=== PATIENT | male | born 1945 | race Caucasian/White ===

== ENCOUNTER 2017-02-26 23:30 | Emergency (ER) | payer MEDICARE ==
[~2017-02-26] VITALS: Ht 188 cm; Wt 88.6 kg
[2017-02-26 23:39] VITALS: BP 151/91; PULSE 82; RESP 16; O2SAT 95
--- NOTE | 2017-02-27 00:28 | ED.REPORT ---
HPI-General Illness Date of Service Feb 27, 2017 ED Provider: Dr. Brice Pt is a 71 year old male who presents to the ED several hours post melanoma removal. He reports that his bandage fell off and he came in to get it replaced. He denies any pain or sense of infection. He reports that he is scheduled to visit wound care every 3 days for wound care, for he is partially paralyzed and it is difficult for him to do on his own. Pt temporarily replaced the bandage with a paper towel and painter structural steel's tape. He has no other complaints. Nursing Notes Stated Complaint: BANDAGES FOR STITCHES,JUST HAD SURGERY Chief Complaint: General Complaint Nursing Notes Reviewed: Yes Allergies: Uncoded Allergies: NSAIDS (Allergy, Severe, 09/19/12) General Time Seen by MD: 00:28 Chief Complaint Other (Dressing change) Hx Obtained From: Patient Arrived By: Walk-in Sudden in Onset?: Yes Onset Occurred: Just prior to arrival Symptom Duration: Since onset Severity: Current: No pain currently Severity: Maximum: No pain Similar Sx Previous: Yes Past Medical History Past Medical History Melenoma Past Surgical History Multiple melenoma removals Ambulatory Status Independent Review of Systems Full Review of Systems Constitutional: Denies: Chills, Fever, Malaise, Weakness - generalized Respiratory: Denies: Non-productive cough, Shortness of breath, Wheezing Cardiovascular: Denies: Chest pain, Syncope GI: Denies: Abdominal pain, Constipation, Diarrhea, Nausea, Vomiting Male: Denies Dysuria, Denies Urinary urgency Musculoskeletal: Denies: Back pain, Neck pain Complete sys rev & neg: except as marked. Physical Exam Vital Signs Vital Signs Date Time Temp Pulse Resp B/P Pulse Ox O2 Delivery O2 Flow Rate FiO2 02/26/17 23:39 36.8 82 16 151/91 95 Room Air Initial VS: Reviewed General/Constitutional: Well-developed Head / Eyes: Atraumatic, Normocephalic, PERRL ENT: Mucous membranes moist, Conjunctiva normal, No scleral icterus Neck: Supple, Non-tender, Full range of motion Neurologic: Alert, Oriented, Nonfocal Skin: No rash, Warm, Dry Rash / Lesion Notes: 5x7cm over left upper back with sutures in place. No active bleeding or surrounding erythema Re-Eval/Medical Decision Med Decision/Clinical Course 71-year-old male presenting status post left upper back melanoma removal this evening. He went home and his dressing fell off and he is requesting a new dressing. The wound appears quite good and there is no evidence of infection, bleeding, discharge. Dressing was replaced. Patient is discharged home with follow-up with his regular doctor. Source of Hx: Old records Time of Eval: 00:58 Re-Evaluation/Progress Note: Pt is rechecked and informed of the plan to discharge him at this time. He understands and agrees, all questions are addressed. Counseled Regarding: Diagnosis, Need for follow-up, When/why to return to ED Discharge & Departure Primary Impression: Dressing change Disposition: Home Discharge Condition All VS Reviewed: Yes Condition: Stable Patient Instructions: Acute Wound Care (ED) Additional Instructions: Thank you for seeking care in the emergency department today. Your dressing was successfully changed today. Your wound appears to be healing well. Keep the area clean and dry as instructed by your field spec. Follow up with wound care as planned. Referrals: Andrei Vidal MD (PCP) Edwin Attestation Portions of this note were transcribed by Dr. Burrell. I, Malika Estrella personally performed the history, physical exam and medical decision-making; I reviewed and confirmed the accuracy of the information in the transcribed note. Signed by: Edwin Harmon, 02/26 0115 copies to: Andrei Vidal MD, Ben M MD Feb 27, 2017 00:28 WALTER ESTRELLA Feb 27, 2017 01:00
== END 2017-02-27 01:30 | disposition home or self-care (01) ==
LOC: SED 23:30
DX: Z48.01 Encounter for change or removal of surgical wound dressing (principal); Z98.890 Other specified postprocedural states; J45.909 Unspecified asthma, uncomplicated; I10 Essential (primary) hypertension; Z88.6 Allergy status to analgesic agent
CPT/HCPCS: 11403; 12034; 17000; 88305; 88342; 99282; G0463

== ENCOUNTER 2017-07-21 06:26 | Emergency (ER) | payer MEDICARE, MEDICAID ==
[~2017-07-21] VITALS: Ht 185.4 cm; Wt 81.8 kg
--- NOTE | 2017-07-21 06:27 | ED.REPORT ---
HPI-Allergic Reaction Date of Service Jul 21, 2017 ED Provider: Dr. Chapa The pt is a 72 y/o male with a hx of COPD, HTN, asthma, and bee sting allergy who presents to the ED complaining of multiple bee stings, onset 40 minutes ago. The pt was stung on his left forearm, back and head. The pt was running away from the bees when he fell. He complains of right elbow pain, right shoulder pain and right sided lateral chest pain that exacerbates with movement. He denies throat tightness and fullness, shortness of breath, and facial swelling. Nursing Notes Stated Complaint: ALLERGIC REACTION Nursing Notes Reviewed: Yes Allergies: Uncoded Allergies: NSAIDS (Allergy, Severe, 09/19/12) BEE STINGS (Allergy, Unknown, 07/21/17) Scheduled PRN Oxycodone (Roxicodone) 5 Mg Tablet 2.5-5 MG PO QID PRN PRN For Pain General Time Seen by MD: 06:27 Chief Complaint Insect bite/sting Hx Obtained From: Patient Arrived By: Walk-in Onset Occurred: 16 - 30 minutes ago Symptom Duration: Since onset Location: : Arm right (elbow and shoulder): Chest (right sided lateral) Quality: Painful Severity: Current: Moderate Severity: Maximum: Moderate Recent Healthcare: No recent doctor visit Past Medical History Past Medical History Melenoma COPD HTN Asthma Past Surgical History Multiple melenoma removals Hernia surgery Smoking History Unknown if Ever Smoker Social History Alcohol Use: "Social" Drug Use: THC Ambulatory Status Independent Review of Systems Reports: bee stings on the left forearm, back and head Reports: right sided lateral chest pain Denies:throat tightness and fullness Denies: facial swelling Respiratory: Denies: Shortness of breath Complete sys rev & neg: except as marked. Musculoskeletal: Reports: Joint pain (right elbow, right shoulder) Physical Exam Initial Vital Signs Vital Signs (First) Date Time Temp Pulse Resp B/P Pulse Ox O2 Delivery O2 Flow Rate FiO2 07/21/17 06:29 36.7 106 16 180/93 96 Room Air Initial VS: Reviewed Neck: Supple, Non-tender, Full range of motion Abdomen / GI: Soft, Non-tender, No guarding, No rebound, No distention Extremities: Vascular intact, Neuro intact, No swelling, No tenderness Neurologic: Alert, Oriented, Nonfocal General/Constitutional: Awake, Alert, Cooperative Respiratory / Chest: Atraumatic, No respiratory distress, No rales, No rhonchi , No stridor Wheezing / Retractions: Positive: Wheezing expiratory (mild) Chest Wall / Ribs: Positive: Chest tender upper R Cardiovascular: Heart rate NL, Regular rhythm, Heart sounds NL, No gallop, No murmurs, No rubs Skin: Atraumatic, Warm, Dry, Intact Couple of scattered urticarial lesions on left forearma and on his left thoracic area. Head / Eyes: Atraumatic, Normocephalic, Eyelids NL No facial swelling. ENT: Atraumatic, Airway patent, Mucous membranes moist, Pharynx NL No oropharyngeal edema Interpretation & Diagnostics PROCEDURE: X-RAY RIGHT RIBS INCLUDING PA CHEST, MINIMUM THREE VIEWS ([id number]) IMPRESSION: Mildly displaced right third and fifth rib fractures. Dictated by: Maxim Cullen M.D. on 07/21/2017 at 8:01 Approved by: Maxim Cullen M.D. on 07/21/2017 at 8:03 Procedures Splint Application - Fx Mgt Time: 08:50 Procedure Performed by: Nurse Type of Immobilization: Sling Definitive Fracture Care: Pain control, Sling Post-Procedure / Complications: Cap refill normal, Post splint vascular nl, Post splint neuro nl, Condition improved, Tolerated procedure well, Patient stable Re-Eval/Medical Decision Med Decision/Clinical Course Localized allergic reaction from bee stings. No systemic signs after observation. Additionally patient has nondisplaced rib fractures after a fall sustained when running from bees. Oxycodone prescribed. Patient is already on steroid medication. Return and follow-up precautions given. Re-Evaluation/Progress #1: Time of Eval: 06:36 Re-Evaluation/Progress Note: Rechecked pt. Discussed the plan to do a chest X-ray. The pt understands and agrees. All questions answered. Re-Evaluation/Progress #2: Time of Eval: 08:35 Re-Evaluation/Progress Note: Rechecked pt. Discussed imaging results, diagnosis and plan to discharge. Pt understands and agrees with the plan. F/U instruction and RTER warning given. All questions addressed Counseled Regarding: Diagnosis, Need for follow-up, When/why to return to ED Discharge & Departure Primary Impression: Bee sting reaction Encounter type: initial encounter Injury intent: accidental or unintentional Qualified Code: T63.441A - Toxic effect of venom of bees, accidental (unintentional), initial encounter Additional Impression: Rib fracture Encounter type: initial encounter Rib fracture type: multiple ribs Fracture type: closed Laterality: right Qualified Code: S22.41XA - Multiple fractures of ribs, right side, initial encounter for closed fracture Disposition: Home Discharge Condition All VS Reviewed: Yes Condition: Stable Patient Instructions: Insect Bite or Sting (ED) Additional Instructions: You were stung by bees. You also fell after running away from the bees and broke 2 ribs on your right side. Take Benadryl as needed for recurrent itching. Use oxycodone and a shoulder sling to help with your shoulder and rib pain. Follow-up with your regular doctor and orthopedist as needed for worsening symptoms. Return to the ER if you develop symptoms of anaphylaxis such as throat closing, oral or facial swelling, difficulty breathing, or other concerns Referrals: Andrei Vidal MD (PCP) Scribe Attestation Portions of this note were transcribed by Rogerio Cedeño. I,, personally performed the history,physical exam and medical decision-making;I reviewed and confirmed the accuracy of the information in the transcribed note. Signed by Edwin Rodriguez. 07/21/17 copies to: Andrei Vidal MD, Timothy S DO Jul 21, 2017 06:27 Rogerio Cedeño Jul 21, 2017 06:36
[2017-07-21 06:29] VITALS: BP 180/93; PULSE 106; RESP 16; O2SAT 96
[2017-07-21] MEDS ORDERED: Famotidine 10 mg/mL 2 mL Inj IVPUSH ONE (06:35)
[2017-07-21] MEDS ORDERED: 0.9% Sodium Chloride 1,000 ML IV ONE (06:35)
[2017-07-21] MEDS ORDERED: MethylprednisoLONE Sodium Succinate 62.5 mg/mL 2 mL Inj IVPUSH ONE (06:35)
[2017-07-21] MEDS ORDERED: 0.9% Sodium Chloride 1,000 ML IV SCH (06:35)
[2017-07-21] MEDS ORDERED: Famotidine 20 mg/50 mL NS Premix IV ONE (07:16)
--- NOTE | 2017-07-21 08:04 | DRSVH ---
PROCEDURE: X-RAY RIGHT RIBS INCLUDEING PA CHEST, MINUMUM THREE VIEWS ([id number]) INDICATIONS: fall, rib pain TECHNIQUE: 4 views of the right ribs were acquired, along with a single view chest. COMPARISON: None. FINDINGS: Surgical changes and devices: None. Bones and chest wall: Mildly displaced right third and fifth rib fractures. No suspicious bony lesio ns. Overlying soft tissues appear unremarkable. Lungs and pleura: No pleural effusions or pneumothorax. Lungs appear clear. Mediastinum: Mediastinal contours appear normal. Heart size is normal. IMPRESSION: Mildly displaced right third and fifth rib fractures. Dictated by: Maxim Cullen M.D. on 07/21/2017 at 8:01 Approved by: Maxim Cullen M.D. on 07/21/2017 at 8:03
[2017-07-21] MEDS ORDERED: OXYC-474 PO (08:38)
[2017-07-21 08:56] VITALS: BP 159/72; PULSE 89; RESP 15; O2SAT 96
[2017-07-22] MEDS ORDERED: LISI30TA5 PO (23:15)
[2017-07-22] MEDS ORDERED: ADV250INH INHALATION (23:15)
[2017-07-22] MEDS ORDERED: PRE20 PO (23:15)
[2017-07-22] MEDS ORDERED: FLUO20CA25 PO (23:15)
[2017-07-22] MEDS ORDERED: MOME17SP NASAL (23:15)
[2017-07-22] MEDS ORDERED: TIZA4TAB4 PO (23:42)
[2017-07-22] MEDS ORDERED: CEPH500C PO (23:42)
[2017-07-22] MEDS ORDERED: TEST200V20 INJ (23:42)
[2017-07-22] MEDS ORDERED: OXYC5TAB72 PO (23:42)
== END 2017-07-21 09:00 | disposition home or self-care (01) ==
LOC: SED 06:26
DX: T63.441A Toxic effect of venom of bees, accidental (unintentional), initial encounter (principal); S22.41XA Multiple fractures of ribs, right side, initial encounter for closed fracture; W18.39XA Other fall on same level, initial encounter; Y93.02 Activity, running; Y92.9 Unspecified place or not applicable; Y99.8 Other external cause status; I10 Essential (primary) hypertension; Z88.6 Allergy status to analgesic agent
CPT/HCPCS: 71101; 96361; 96374; 96375; 99284; J1200; J2930; J7030

== ENCOUNTER 2017-07-22 16:49 | Inpatient (IN) | payer MEDICARE, MEDICAID ==
[~2017-07-22] VITALS: Ht 185.4 cm; Wt 79.2 kg
[2017-07-22] VITALS (8 sets, daily range): BP systolic 152–163; BP diastolic 89–96; PULSE 86–94; RESP 14–21; O2SAT 91–94
[~2017-07-22 16:49] MED LIST: OXYC-474 PO
--- NOTE | 2017-07-22 17:03 | ED.REPORT ---
HPI-General Illness Date of Service Jul 22, 2017 ED Provider: Ganesh Munoz MD Patient is a 72 year old male with a history of COPD, hypertension and asthma who presents to the ED via EMS complaining of increasing shortness of breath. Patient states that he has tried using 3 nebulizer treatments at home without relief. He is also on daily Prednisone. The patient was seen yesterday in the ED after he experienced a ground level fall running from bees. His rib X-ray from 07/21/17 showed mildly displaced right third and fifth rib fractures. He reports increasing work of breathing and difficulty breathing. He denies new cough or fevers. Nursing Notes Stated Complaint: SHORTNESS OF BREATH Chief Complaint: Respiratory Distress Nursing Notes Reviewed: Yes Allergies: Coded Allergies: NSAIDS (Non-Steroidal Anti-Inflamma (Verified Allergy, Severe, BREATHING STOPS, 07/22/17) aspirin (Verified Allergy, Severe, STOP BREATHING, 07/22/17) Uncoded Allergies: BEE STINGS (Allergy, Unknown, 07/21/17) Scheduled PRN Oxycodone (Roxicodone) 5 Mg Tablet 2.5-5 MG PO QID PRN PRN For Pain General Time Seen by MD: 16:59 Chief Complaint Other (shortness of breath) Hx Obtained From: Patient Arrived By: Ambulance Onset Occurred: 1 - 4 hours ago Symptom Duration: Since onset Location: : Chest Quality: Painful Severity: Current: Moderate Recent Healthcare: Recent doctor visit Past Medical History Past Medical History Melenoma Reports: Asthma, COPD, Hypertension Past Surgical History Multiple melenoma removals Hernia surgery Smoking History Unknown if Ever Smoker Social History Alcohol Use: "Social" Drug Use: THC Ambulatory Status Independent Review of Systems Full Review of Systems Constitutional: Denies: Chills, Fever Respiratory: Reports: Shortness of breath, Wheezing Cardiovascular: Reports: Chest pain (rib pain) Skin: Denies Itching, Denies Rash Neurologic: Denies: Numbness, Weakness Complete sys rev & neg: except as marked. Physical Exam Vital Signs Vital Signs Date Time Temp Pulse Resp B/P Pulse Ox O2 Delivery O2 Flow Rate FiO2 07/22/17 18:14 94 14 163/93 93 Nasal Cannula 07/22/17 18:03 94 20 93 Nasal Cannula 1 07/22/17 16:58 37.5 87 21 160/91 93 Room Air Initial VS: Reviewed General/Constitutional: Awake, Alert Head / Eyes: Atraumatic, Normocephalic, PERRL, EOMI Respiratory / Chest: No crepitus Wheezing / Retractions: Positive: Wheezing expiratory prolonged expiratory phase tender over the right superior lateral chest wall no palpable chest deformity Cardiovascular: Heart rate NL, Regular rhythm, Heart sounds NL, No gallop, No murmurs, No rubs Abdomen: Atraumatic, Soft, Non-tender, No distention Skin: Atraumatic, Color NL, No rash, Warm, Dry Neurologic: Oriented X3, Speech NL Interpretation & Diagnostics Lab Results Interpretation Result Diagram: 07/22/17 1719 07/22/17 1719 Test 07/22/17 17:19 White Blood Count 13.6th/mm3 (3.8-10.1) Red Blood Count 5.19mil/mm3 (4.40-5.80) Hemoglobin 16.5g/dL (13.8-17.2) Hematocrit 49.1% (41.0-50.0) Mean Corpuscular Volume 94.6fL (81-100) Mean Corpuscular Hemoglobin 31.8pg (27.0-35.0) Mean Corpuscular Hemoglobin Concent 33.6% (32.0-37.0) Red Cell Distribution Width 14.6% (12.3-15.4) Platelet Count 222bil/L (150-400) Neutrophils (%) (Auto) 75.4% (40-74) Lymphocytes (%) (Auto) 11.9% (14-46) Monocytes (%) (Auto) 9.8% (4-12) Eosinophils (%) (Auto) 0.4% (0-5) Basophils (%) (Auto) 0.2% (0-3) Prothrombin Time 9.8sec (8.1-12.5) Prothromb Time International Ratio 0.92ratio Sodium Level 142mEq/L (134-144) Potassium Level 3.9mEq/L (3.5-5.2) Chloride Level 103mEq/L (97-108) Carbon Dioxide Level 21mmol/L (18-29) Blood Urea Nitrogen 9mg/dL (8-27) Creatinine 0.73mg/dL (0.76-1.27) Estimat Glomerular Filtration Rate 113mL/min (>59) Glucose Level 126mg/dL (60-99) Calcium Level 9.3mg/dL (8.5-10.1) Magnesium Level 2.1mg/dL (1.6-2.6) Total Bilirubin 0.9mg/dL (0.0-1.2) Aspartate Amino Transf (AST/SGOT) 25U/L (0-50) Alanine Aminotransferase (ALT/SGPT) 26U/L (0-44) Alkaline Phosphatase 55U/L (25-160) Total Creatine Kinase 199U/L (21-232) Creatine Kinase MB 5.4ng/mL (0.0-10.4) Creatine Kinase MB % % (0.0-5.0) Troponin T 0.022ug/L (0.0-0.011) Pro-B-Type Natriuretic Peptide 1989pg/mL (0-376) Total Protein 7.0g/dL (6.4-8.4) Albumin 4.0g/dL (3.4-5.0) Procalcitonin 0.06ng/mL (0.00-0.08) ECG Interpretation ECG Interpretation: left axis deviation inferior Q waves anteroseptal Q waves no ST segment elevation no acute T wave abnormalities no prior EKG for comparison Time: 17:45 Interpreted by: ED physician Normal ECG Interpretation: Normal rate (84), Normal sinus rhythm X-Ray Chest Interpretation Chest Xray Interpretation: IMPRESSION: Focal right basilar airspace opacity suspicious for aspiration, atelectasis, or infection. Dictated by: Sarah Johnson M.D. on 07/22/2017 at 17:57 Approved by: Sarah Johnson M.D. on 07/22/2017 at 17:59 View: Portable, 1 view Interpretation / Wet Read by: Interpret - Radiologist Re-Eval/Medical Decision Med Decision/Clinical Course Patient is a 72 year old male with a history of COPD, hypertension and asthma who presents to the ED via EMS complaining of increasing shortness of breath. Patient states that he has tried using 3 nebulizer treatments at home without relief. He is also on daily Prednisone. The patient was seen yesterday in the ED after he experienced a ground level fall running from bees. His rib X-ray from 07/21/17 showed mildly displaced right third and fifth rib fractures. He reports increasing work of breathing and difficulty breathing. He denies new cough or fevers. Upon arrival in the emergency department the patient had significant respiratory distress requiring 4 L of supplemental oxygen by nasal cannula. He was otherwise hemodynamically stable and afebrile. The patient received the blow medications: 2 duo nebs, 125mg Methylprednisolone, Zithromax, ASA Laboratory studies were noted was below: Leukocytosis of 13.6, CBC otherwise unremarkable CMP unremarkable Trop elevated at 0.022 BNP: 1989 Coag studies normal EKG: sinus rhythm, 84bpm left axis deviation inferior Q waves anteroseptal Q waves no ST segment elevation no acute T wave abnormalities no prior EKG for comparison Chest X-ray: Focal right basilar airspace opacity suspicious for aspiration, atelectasis, or infection. At this time, the patient presents with significant respiratory distress in the setting of known acute traumatic rib fractures and significant underlying COPD. He clearly is experiencing COPD exacerbation and I suspect that his superimposed rib fractures are causing his current degree of respiratory distress. He was treated with [id number] DuoNeb as well as supplemental oxygen and IV methylprednisolone. He reported improvement in his breathing though had ongoing respiratory distress. Chest x-ray demonstrated what in my assessment appears to be atelectasis and I have opted to withhold antibiotics other than oral Azithromycin for the Moment. The patient was discussed with the admitting hospitalist and accepted for further management. The patient elevation of troponin remains of unclear etiology and will require trending of his troponins. EKG demonstrates no ST elevation and given his acute traumatic injury I opted not to aggressively heparinize him at the moment. We will trend his troponins and continue to observe him. He has been given aspirin. He was transferred in stable condition. Time of Eval: 18:24 Re-Evaluation/Progress Note: Discussed results and plan for admit. Patient understands and agrees to plan. All questions were addressed. Consultation : Referral / Consult Name: Neli Diaz MD Consulted With: Hospitalist Call Returned at: 18:30 Wedding Makeup Artist: Agrees with eval, Agrees with plan, Accepts admit Counseled Regarding: Diagnosis, Lab results, Need for admission Discharge & Departure Primary Impression: COPD exacerbation Additional Impressions: Hypoxia Elevated troponin Fall from ground level Multiple rib fractures Encounter type: initial encounter Fracture type: closed Laterality: right Qualified Code: S22.41XA - Multiple fractures of ribs, right side, initial encounter for closed fracture Respiratory distress Disposition: ADMITTED TO HOSPITAL Discharge Condition All VS Reviewed: Yes Condition: Stable Referrals: Andrei Vidal MD (PCP) Crit Care Except Billable Proc Time Spent: 105-134 minutes Services Performed: Patient management by me, Time spent at bedside, Reviewing test results, Reviewing imaging, Discussing patient care, Documentation in record Critical Care Notes: Reviewing previous workup, management of acute respiratory distress, management of elevated troponin, discussion with hospitalist and patient Scribe Attestation Portions of this note were transcribed by Ruby Iniguez. I, Dr. Munoz personally performed the history, physical exam and medical decision-making; I reviewed and confirmed the accuracy of the information in the transcribed note. Signed by: Edwin Dumont, 07/22/17 copies to: Andrei Vidal MD, Beck O MD Jul 22, 2017 17:03 Arti Iniguez Jul 22, 2017 17:29
[2017-07-22 17:22] LABS: BASOPHILS % (AUTO) 0.2 % (0-3); EOSINOPHILS % (AUTO) 0.4 % (0-5); MONOCYTES % (AUTO) 9.8 % (4-12); Mean Corpuscular Hemoglobin 31.8 pg (27.0-35.0); Mean Corpuscular Volume 94.6 fL (81-100); NEUTROPHILS % (AUTO) 75.4 % (40-74); Platelet Count 222 bil/L (150-400)
[2017-07-22] MEDS ORDERED: MethylprednisoLONE Sodium Succinate 62.5 mg/mL 2 mL Inj IVPUSH ONE (17:30)
[2017-07-22] MEDS ORDERED: Alum-Mag Hydrox-Simeth 30 mL Suspension PO PRN ×2 (17:30→19:05)
[2017-07-22] MEDS ORDERED: Albuterol-Ipratropium 3 mL Inhalation Solution NEB ONE (17:30)
[2017-07-22] MEDS ORDERED: Ondansetron 2 mg/mL 2 mL Inj IVPUSH PRN ×2 (17:30→19:05)
[2017-07-22 17:45] LABS: INR 0.92 ratio
[2017-07-22 17:46] LABS: TROPONIN T 0.022 ug/L (0.0-0.011)
[2017-07-22 17:57] LABS: Magnesium 2.1 mg/dL (1.6-2.6)
--- NOTE | 2017-07-22 18:01 | DRSVH ---
PROCEDURE: X-RAY CHEST, TWO VIEWS ([id number]) INDICATIONS: SHORT OF BREATH TECHNIQUE: 2 views of the chest were acquired. COMPARISON: [facility], CR, XR RIBS INC PA CXR MIN 3VW RT, 07/21/2017, 6:40. [facility], CR, CHEST 1VW (PORTABLE), 09/19/2012, 14:31. [facility], CR, XR CHEST 2VW, 10/08/2016, 10:17. FINDINGS: Surgical changes and devices: None. Lungs and pleura: Focal pulmonary opacities are present at the medial right lung base. No pleural eff usion or pneumothorax. Mediastinum: Mediastinal contours are normal. Heart size is normal. Bones and chest wall: Right rib fractures described on the rib series dated 07/21/17 are not visualize d on the current study. Soft tissues appear unremarkable. IMPRESSION: Focal right basilar airspace opacity suspicious for aspiration, atelectasis, or infection . Dictated by: Sarah Johnson M.D. on 07/22/2017 at 17:57 Approved by: Sarah Johnson M.D. on 07/22/2017 at 17:59
--- NOTE | 2017-07-22 19:18 | PCM.HPMED ---
Subjective Date of Service Jul 22, 2017 Primary Provider: Admitting Physician: Primary Care Physician: Andrei Vidal MD Attending Physician: Chief Complaint: Patient is a 72-year-old male with a medical history significant for hypertension and COPD presents with respiratory symptoms History of Present Illness: Per patient, he states significant shortness of breath with increasing wheezing since this morning. He desats to the low 80s with exertion. He can walk around 8-10 feet before stopping for air. Patient states that he cannot cough due to significant chest pain. Patient in the emergency room yesterday status post ground-level fall while he was running away from [place], resulting in right ribs fracture. Patient reports that he can usually clear his mucus every morning with vigorous coughing. However with ribs fracture, he cannot fully excoriate. Patient try inhalers that failed to ameliorate symptoms, thus present himself to ED. On review of system, patient denies any lightheadedness or dizziness. He further denies any cardiac chest pain, no syncopal episode, no palpitation. Patient has chronic cough, no change in sputum color or quantity, no hemoptysis. Additionally patient denies any fevers, chills, or night sweats. She denies any hematemesis, no nausea vomiting or diarrhea. In the ED, patient vital remained stable, blood pressure slightly high 163 and 96 otherwise no temperatures, pulses 80s, respiratory rate 18, pulse oximetry 91 -94% on 1-2 L. Chest x-ray redemonstrate right rib fracture, otherwise focal pulmonary opacity in the right mediastinal lung, possible pneumonia, aspiration or atelectasis. CBC with white count 13.6 elevated, however neutrophils 75.4%. Pro-calcitonin 0.06 unremarkable. Lab CMP unremarkable, kidney function GFR estimated at 113. Troponin mildly elevated at 0.022, CK and CK-MB within normal range however. And EKG without any ST or T-wave changes. Given the patient's elevated white count in addition to mild elevation in troponin, patient admitted for further evaluation Review of Systems: A comprehensive review of systems was conducted with the patient and found to be negative except as above in the History of Present Illness. 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 Primary hypogonadism History of nasal polyposis Depression COPD Surgical History Hernia repair surgery Multiple skin excision Family History Mother had lung cancer Family history of Alzheimer disease Social History Hx Alcohol Use: Yes (occassional) Hx Substance Use: No Hx Tobacco Use: No Smoking Status: Current Some Day Smoker (marijuana), Unknown if Ever Smoker Exam Vital Signs Vital Sign - Last Date Time Temp Pulse Resp B/P Pulse Ox O2 Delivery O2 Flow Rate FiO2 07/22/17 18:14 94 14 163/93 93 Nasal Cannula 07/22/17 18:03 1 07/22/17 16:58 37.5 Exam General: No acute distress, appropriately interactive HEENT: Normocephalic, atraumatic. PERRLA, EOMI, Anicteric sclerae, moist conjunctivae. Neck: No JVD, No bruits. No lymphadenopathy or thyromegaly. Cardiovascular: Regular heart rate and rhythm, there is a 2+ systolic heart murmur, no rub or gallop noted however Pulmonary: b/l air sound significant wheezing, tight, no crackles or rhonchi Abdomen: +Bowel sound, Soft, nontender, nondistended. Extremities: No clubbing or cyanosis, no lymphedema, no b/l lower leg edema Skin: Normal temperature, turgor, and texture; no rash. No visualized skin ulcer. Neurological: CN II-VII grossly intact, moving equally on all 4 extremities Psychiatric: Normal mood and affect. AOx3 Lab and Diagnostics Result Diagram: 07/22/17171807/22/171718 X-Rays, CTs and MRIs PROCEDURE: X-RAY CHEST, TWO VIEWS ([id number]) INDICATIONS: SHORT OF BREATH IMPRESSION: Focal right basilar airspace opacity suspicious for aspiration, atelectasis, or infection. Dictated by: Sarah Johnson M.D. on 07/22/2017 at 17:57 Assessment & Plan Patient is a 72-year-old male with medical history significant for COPD, asthma , and hypertension presents with significant shortness of breath, admitted for COPD exacerbation Multiple rib fractures -Mildly displaced right third and fifth rib fractures -oxycodone-apap 5-325mg Q4H prn COPD exacerbation -likely 2nd to rib pain, unable to clear phlegm -Solu-Medrol 125 mg every 6 hours -DuoNeb q4h while awake -Maintain O2 sat >93% Elevated troponin of uncertain significance -possible stress induced. kathrin score 3. -ASA 81mg given, ordered atorvastatin 20mg. -Troponin mildly elevated at 0.[address]-T changes, ck/ck-mb negative -Trending troponin, lipid panel, echo in the AM -telemetry monitoring Leukocytosis -CRx possible atelectasis. has right 3rd and 5th rib fracture -Likely steroid-induced -mild concerns for pneumonia given chronic prednisone 10mg BID -Procalcitonin ordered, received 1 dose azithromycin. low threshold to start abx. Essential Hypertension -restart home lisinopril -Lopressor 2.5-5mg IV should SBP consistently >180mmgh Depression -restart home fluoxetine Hyperglycemia -A1c pending CODE STATUS full code DVT prophylaxis heparin subq Patient Status: Patient is admitted under inpatient status with expected length of stay GREATER than 2 midnights due to severity of presenting symptoms, risk of adverse event, and complexity of treatment plan. Resuscitation Status: CPR: Attempt Resuscitation Attending Statement The patient was seen and examined together with Dr. Alicea on 07/22 and I agree with the history, exam and plan as outlined in the note above Jonny Alicea DO Jul 22, 2017 19:18 Norman Balbuena MD Jul 22, 2017 23:54
[2017-07-22] MEDS ORDERED: oxyCODONE-Acetamin 5-325 mg Tablet PO PRN (19:20)
[2017-07-22 20:07] LABS: Creatine Kinase 199 U/L (21-232)
[2017-07-22] MEDS ORDERED: MeTOProlol 1 mg/mL 5 mL Inj IVPUSH SCH (20:30)
[2017-07-22] MEDS: Albuterol-Ipratropium 3 mL Inhalation Solution NEB SCH (20:50)
[2017-07-22 21:46] LABS: APPEARANCE,URINE CLEAR (CLEAR,HAZY); COLOR,URINE YELLOW (YELLOW); OCCULT BLOOD,URINE NEGATIVE (NEGATIVE); PH,URINE 7.5 (5.0-8.0); UROBILINOGEN,URINE NORMAL (NORMAL)
--- NOTE | 2017-07-22 22:56 | NUR ---
Admit Pt arrived to [facility] floor at 1999 from ED for COPD exacerbation/hypoxia. Became short of breath with transfer to bed. Pt had a fall earlier in the week due to running away from bees and has fractured the 3rd and 5th rib on the right side -gave pillow to help splint when coughing. Pt c/o discomfort to the right side and discomfort to breath, but is refusing pain medications at this time. Has severe allergy to NSAIDS and aspirin and states "I would rather have just straight oxycodone and no tylenol). Is on 2-3L NC and receiving PRN neb treatments as well as Solu-Medrol and PO antibiotics at this time. Pt is on tele due to elevated troponin (without ST-T changes), BNP, and hypertension and has ordered to trend troponin levels, lipid panel, and echo for tomorrow.
[2017-07-22] MEDS ORDERED: FLUO20CA25 PO (23:15)
[2017-07-22] MEDS ORDERED: LISI30TA5 PO (23:15)
[2017-07-22] MEDS ORDERED: MOME17SP NASAL (23:15)
[2017-07-22] MEDS ORDERED: ADV250INH INHALATION (23:15)
[2017-07-22] MEDS ORDERED: PRE20 PO (23:15)
[2017-07-22] MEDS ORDERED: OXYC-530 PO (23:42)
[2017-07-22] MEDS ORDERED: TIZA4TAB4 PO (23:42)
[2017-07-22] MEDS ORDERED: CEPH500C PO (23:42)
[2017-07-22] MEDS ORDERED: TEST200V20 INJ (23:42)
[2017-07-23] VITALS (14 sets, daily range): BP systolic 153–178; BP diastolic 80–108; PULSE 77–114; RESP 16–20; O2SAT 90–95
[2017-07-23] MEDS ORDERED: MethylprednisoLONE Sodium Succinate 62.5 mg/mL 2 mL Inj IVPUSH SCH
[2017-07-23] MEDS: Albuterol-Ipratropium 3 mL Inhalation Solution NEB PRN ×3 (00:37→10:33)
[2017-07-23] MEDS: Heparin 5,000 Unit/mL Inj SUBQ SCH ×3 (01:01→18:16)
[2017-07-23] MEDS: MethylprednisoLONE Sodium Succinate 62.5 mg/mL 2 mL Inj IVPUSH SCH ×2 (02:34→08:36)
[2017-07-23 05:33] LABS: BASOPHILS % (AUTO) 0.1 % (0-3); EOSINOPHILS % (AUTO) 0 % (0-5); MONOCYTES % (AUTO) 4.1 % (4-12); Mean Corpuscular Hemoglobin 32.1 pg (27.0-35.0); Mean Corpuscular Volume 95.6 fL (81-100); NEUTROPHILS % (AUTO) 91.8 % (40-74); Platelet Count 185 bil/L (150-400)
[2017-07-23 06:11] LABS: TROPONIN T 0.01 ug/L (0.0-0.011)
[2017-07-23] MEDS: Albuterol-Ipratropium 3 mL Inhalation Solution NEB SCH ×4 (07:48→20:31)
--- NOTE | 2017-07-23 12:36 | PCM.PNMED ---
Subjective Date of Service Jul 23, 2017 Subjective Patient appears very agitated, speaking rapidly, appears to be having some conversational dyspnea. says he is missing his coffee. Does not appear to follow his doctors guidelines, he states that he likes to smoke marijuana because it something he did enjoy in his college days, he knows that he is going to go in a few years any ways. He is endorsing difficulty breathing, wheezing, pain in his ribs on the right side. He states that he wants to make sure it is not given aspirin, NSAIDs. He would like pain medication oxycodone to be changed 2.5 mg every 2 hours, he would like to receive a nebulizer treatment every 2 hours. He also wants to make sure that his antibiotic is still on onboard He has no other concerns. Exam Vital Signs Vital Sign - Last Date Time Temp Pulse Resp B/P Pulse Ox O2 Delivery O2 Flow Rate FiO2 07/23/17 08:43 Supplement Oxygen 07/23/17 08:16 36.8 94 16 166/103 93 1.00 Intake and Output 07/22/17 07/22/17 07/23/17 Cumulative From/Thru 15:00 23:00 07:00 07/22/17 16:58 - 07/23/17 06:50 Intake Total 0 ml 0 ml Output Total 1700 ml 1700 ml Balance -1700 ml -1700 ml Intake Oral 0 ml 0 ml Output Urine Total 1700 ml 1700 ml # Bowel Movements 0 0 Exam Gen.: Patient appears very anxious , mildly irritated HEENT: Ready complexion poor dentition lungs dissuely wheezy can not hear ehart sounds very agitated positive for conversational dyspnea skinny bosy habitus pain over T4, 3rd/4tyh rib on R side no edema in legs neck pain Lab and Diagnostics Result Diagram: 07/23/17 0500 07/23/17 0500 X-Rays, CTs and MRIs PROCEDURE: X-RAY CHEST, TWO VIEWS ([id number]) INDICATIONS: SHORT OF BREATH IMPRESSION: Focal right basilar airspace opacity suspicious for aspiration, atelectasis, or infection. Dictated by: Sarah Johnson M.D. on 07/22/2017 at 17:57 Assessment & Plan Patient is a 72-year-old male with medical history significant for COPD, asthma , and hypertension presents with significant shortness of breath, admitted for COPD exacerbation COPD acute on chronic exacerbation, POA -likely 2nd to rib pain, unable to clear phlegm -Solu-Medrol 40 mg every 12 hours -DuoNeb q4h while awake -Maintain O2 sat 88-92% --continue home advair --albuterol 2.5 q2h PRN --mucinex 600 mg PO BID --ABG: no concern for resp depression --Chest CT is ordered as he seems to have some right-sided opacity and a chest x -ray, nonspecific finding. Patient states that he was asked to CT of chest in the past, he was unable to as his insurance did not cover. -- Consider sputum cultures if he can expectorate, he is currently not able to ---- Discussed the case with Dr. Herber Trotter who said that he will review the CT scan and call back with recommendations. Follow up with him in the am Multiple rib fractures, POA -Mildly displaced right third and fifth rib fractures -changed oxycodone-apap 5-325mg half dose Q2H prn -- Lidoderm patch, Tylenol IV 1 g 3 times a day when necessary -- Discussed case with anesthesiology, they do not due to blocks in this hospital. Anes Feel that IV Tylenol and tricyclic acids might also help. -- Thoracic spine x-ray is ordered as he is endorsing pain in his right upper thoracic Elevated troponin of uncertain significance POA acute -possible stress induced. kathrin score 3. -ASA 81mg given, ordered atorvastatin 20mg. : pt ddi not want to take aspirin -Troponin mildly elevated at 0.[address]-T changes, ck/ck-mb negative -Trending troponin, normalized x 2 lipid panel showed need for statin, discuss in the am - echo in the AM: "Left ventricular wall thickness is mildly increased. Left ventricular systolic function is normal without focal wall motion abnormalities. The ejection fraction is estimated to be 55-60%. LVEF has not changed since prior study. The ascending aorta is mildly enlarged." -telemetry monitoring -- Elevated proBNP is also present on admission. Discuss with cardiology based on his CXR and CT there was no concern for acute CHF. Leukocytosis unknown chronicity, POA improved -CXR possible atelectasis. has right 3rd and 5th rib fracture -Likely steroid-induced -mild concerns for pneumonia given chronic prednisone 10mg BID -Procalcitonin ordered, received -cont azithromycin Essential Hypertension presumed stable -restart home lisinopril -Lopressor 2.5-5mg IV should SBP consistently >180mmgh Depression chronic presumed stable -restart home fluoxetine Hyperglycemia acute 07/23 -A1c is ordered and pending --Started him on low SSI CODE STATUS full code DVT prophylaxis heparin subq Patient Status: Patient is admitted under inpatient status with expected length of stay GREATER than 2 midnights due to severity of presenting symptoms, risk of adverse event, and complexity of treatment plan. Patient can be discharged home to self-care once he has pain and symptom relief. Reviewed the CT scan with Dr. Herber Trotter prior to d/c. Aslo discuss pro-BNP w/ cardiology. VTE Mechanical Devices: Intermittant Pneumatic CD Resuscitation Status: CPR: Attempt Resuscitation Time spent 30 min Elissa Davis DO Jul 23, 2017 09:05
[2017-07-23] MEDS: Lidocaine Topical 5% Patch TOPICAL SCH (13:00)
[2017-07-23] MEDS ORDERED: Acetaminophen IV 1,000 MG in IV Premix 1 EACH IV PRN (13:00)
--- NOTE | 2017-07-23 13:38 | NUR ---
PT REFUSED ABG. NSG INFORMED.
--- NOTE | 2017-07-23 14:43 | DRSVH ---
PROCEDURE: X-RAY THORACIC SPINE, 2 VIEWS INDICATIONS: pain in upper thorax R side TECHNIQUE: 2 views of the thoracic spine were acquired. COMPARISON: None. FINDINGS: Bones: No fractures or dislocations. No suspicious bony lesions. 12 pairs of ribs are noted, and a ppear intact where visualized. Mild dextroscoliosis and mild multilevel disc degeneration and there is multilevel ossification of the anterior longitudinal ligament with flowing osteophytes suggestive of diffuse idiopathic skeletal hyperostosis Soft tissues: No paravertebral stripe thickening. IMPRESSION: 1. No fracture seen. If there is continued pain, followup exam or additional imaging such as MRI or CT could be performed for further assessment. 2. Multilevel disc degeneration and diffuse idiopathic skeletal hyperostosis. Dictated by: Prasanna TONG Interpreted: Beck Cedeño MD on 07/23/2017 at 13:21 Approved by: Beck Cedeño M.D. on 07/23/2017 at 14:41
[2017-07-23] MEDS: Fluticasone-Salmererol 250-50 Inhaler INHALATION SCH ×2 (14:50→21:28)
[2017-07-23] MEDS: MethylprednisoLONE Sodium Succinate 40 mg/mL Inj IVPUSH SCH (15:14)
--- NOTE | 2017-07-23 15:26 | ABG ---
DateTimeAnalyzed 15:17:00 -_ pH ____7.465 - 7.350 7.450 pCO2 ___35.6__ -mmHg 35.0 45.0 pO2 ___68.2__ -mmHg 69.0 116 HCO3- ___25.3__ -mmol/L 22.0 26.0 ABE ____2.3__ -mmol/L -2.0 2.0 tHb ___15.5__ -g/dL 12.0 18.0 O2Hb ___92.0__ -% COHb ____0.9__ -% 0.0 1.5 MetHb ____1.1__ -% 0.4 1.5 sO2 ___93.9__ -% 25.0 FIO2 ___28.0__ -% Drawn By RC - Date/Time Notified____ 15:25:00 -_ Liter_Flow ____2.0__ -L/min Oxygen Device 1 __CANNULA - Notified Whom __hawkins - B 753 -mmHg tO2 ___20.0__ -Vol% Brandon test _Positive -
--- NOTE | 2017-07-23 15:50 | NUR ---
Social Work Note: Initial Assessment Data& Assessment: EMR reviewed. [employer] ENGINEER met with pt at bedside to discuss discharge planning, SW role explained. Discharge Planning checklist packet provided. Mook Carmen is a 72 year old male admitted on 07/22/2017 for COPD exacerbation. Pt had presented to the ED the day prior after falling from running away from a gary of bee's he had accidently disturbed. Pt returned to the ED the following day with SOB was not relieved by his nebulizer treatments. Pt has Medicare and [facility] Supplemental insurance coverage. Pt lives in [place] in a 5th wheel, alone and is independent with all ADL's at baseline with no DME needs. Pt does own a cane if needed. Pt currently wearing oxygen but does not normally need supplemental oxygen at home. Pt does have home nebulizer. Pt does not have HH or SNF hx. Pt drives. Pt is not a and does not have LTC insurance. Pt provided with DPOA/AD paperwork to review and complete when possible. Pt friend to transport him home when medically ready. Pt did request [employer]INEER look into Medicaid Transport Eligibility for future reference or if for some reason his friend is unable to transport him home at time of discharge. [facility] ENGINEER called [facility] and confirmed pt does NOT have the transportation benefit and will have to pay privately for transportation home when medically ready if his friend is unable to transport him. MD does not identify any concerns for pt capacity for self care at this time. Pt denies any needs at this time. CIT[employer]X ENGINEER to continue to follow if any needs or MD orders arise. Plan: Anticipated discharge home via POV when medically ready. Pt denies any needs at this time. [employer]ER to continue to follow if any needs or MD orders arise. JOSE Curiel Addendum: 07/23/17 at 1619 by BASIL OMALLEY Amended: Links added.
--- NOTE | 2017-07-23 16:51 | DRSVH ---
[facility] [address] [place] [address] Echocardiogram Report Name: IRASEMA SPARKS NStudy Date: Height: 73 in Hospital Exam Location: [facility] Weight: 174 lb Gender: Male BSA: 2.0 m2 : 1945 Age: 72 yrs BP: 166/108 mmHg Reason For Study: Elevated Troponin Ordering Physician: Performed By: Toy Ferguson Referring Physician: SALVADOR JOAQUIN Interpretation Summary Left ventricular wall thickness is mildly increased. Left ventricular systolic function is normal without focal wall motion abnormalities. The ejection fraction is estimated to be 55-60%. LVEF has not changed since prior study. The right ventricle is normal in size, thickness and function. Pulmonary artery pressures cannot be estimated because of the lack of a measurable TR jet velocity. Both atria are normal in size. There is no significant valvular heart disease. The aortic Sinus(es) of Valsalva are borderline dilated. The ascending aorta is mildly enlarged. Procedure: A two-dimensional transthoracic echocardiogram with color flow and Doppler was performed. The study quality was technically adequate. Comparison is made with the echocardiogram of 01/03/16. The patient was in sinus tachycardia with heart rates between 92-108 bpm during the exam. Left Ventricle: The left ventricle is normal in size. Left ventricular wall thickness is mildly increased. Left ventricular systolic function is normal without focal wall motion abnormalities. The ejection fraction is estimated to be 55-60%. Diastolic function could not be accurately assessed due to tachycardia. Right Ventricle: The right ventricle is normal in size, thickness and function. Atria: Both atria are normal in size. The interatrial septum is intact with no evidence for an atrial septal defect. Mitral Valve: The mitral valve leaflets appear borderline thickened, but open well. There is no mitral regurgitation noted. Aortic Valve: The aortic valve is normal in structure and function. No aortic regurgitation is present. Tricuspid Valve: The tricuspid valve is normal. There is a trace or physiologic amount of tricuspid regurgitation. Pulmonary artery pressures cannot be estimated because of the lack of a measurable TR jet velocity. Pulmonic Valve: The pulmonic valve is not well visualized. There is no significant valvular heart disease. Great Vessels: The aortic Sinus(es) of Valsalva are borderline dilated. The ascending aorta is mildly enlarged. The pulmonary artery is not well visualized, but is probably normal size. The IVC is of normal diameter and collapses greater than 50% with a sniff. This suggests a low right atrial pressure of 3 mm Hg. Pericardium/ Pleura There is no pericardial effusion. There is no pleural effusion. MMode/2D Measurements & Calculations LVIDd: 5.5 cm RA long axis LVOT diam: 2.1 cm LVIDs: 4.4 cm LA A2 area: 19.6 cm AoV Opening FS: 20.3 % LA A4 area: 19.9 cm RA area EPSS: 1.6 cm LA length (vol) Ao root diam IVSd: 1.2 cm : 19.6 cm LVPWd: 1.1 cm LA vol: 60.1 ml RA vol asc Aorta Diam LA vol index : 57.3 ml RA Ao Arch Diam (Prox : 29.7 ml/m2 : 28.3 mm2 Trans): 3.1 cm LV yates. diameter/BSA LV sys. diameter/BSA (cm/m^2): 2.7 (cm/m^2): 2.1 Doppler Measurements & Calculations Ao V2 max MV E max javon MV E/A: 0.57 PA V2 max : 197.4 cm/sec : 43.8 cm/sec Med Peak E' Javon : 107.8 cm/sec Ao max PG MV A max javon PA mean P.7 mmHg : 15.6 mmHg : 76.9 cm/sec E/E' med: 7.4 Ao mean PG Lat Peak E' Javon LVOT Max Javon E/E' lat: 4.9 : 132.5 cm/sec E/e' average: 6.2 PETER(I,D): 2.4 cm sev ratio Ao V2 mean LV V1 max PG PA V2 mean PETER indexed to BSA : 142.3 cm/sec : 79.2 cm/sec (cm^2/m^2): 1.2 Ao V2 VTI: 35.6 cmLV V1 VTI PA pr(Accel) PETER(V,D): 2.3 cm2 : 25.5 cm : 52.4 mmHg Reading Physician:BREANA
--- NOTE | 2017-07-23 17:41 | DRSVH ---
PROCEDURE: CT CHEST WITHOUT CONTRAST ([id number]) INDICATIONS: non -sp CXR findings R mediastinal opacity TECHNIQUE: Noncontrast 5 mm thick sections acquired from the pulmonary apices to the posterior costophrenic angl es. 7 mm thick coronal and sagittal MIP reformats were then acquired. For radiation dose reduction, the following was used: automated exposure control, adjustment of mA and/or kV according to patient size. COMPARISON: [facility], CR, XR CHEST 2VW, 10/08/2016, 10:17. [facility], C R, XR CHEST 2VW, 07/22/2017, 17:29. FINDINGS: Image quality: Good. Lungs and pleura: There is thought to be atelectasis involving the postero-medial basilar segment of the left lower lobe and multiple basilar segments of the right lower lobe. On each side there is loss of definition of the air bronchogram. Inflammation may be causing this. No adenopathy is seen. Mass is not specifically identified but could be easily missed without contrast in the lungs. Bronchoscopy could evaluate for lesions with brushing and to remove mucous plugs if this were the cause. Upper lo bes are clear.. Mediastinum: Heart size is normal. No pericardial effusion. No mediastinal adenopathy by size crit eria. Thoracic aorta and central pulmonary arteries are normal in size. Esophagus is normal in carlitos cayden. No hiatal hernia. Bones and chest wall: No suspicious bony lesions. No vertebral body compression fractures. No axil michael or supraclavicular adenopathy by size criteria. Thyroid gland is within normal limits. Abdomen: Visualized upper abdominal solid organs and bowel loops appear normal in the absence of con trast. IMPRESSION: There are bibasilar right greater than left aeration abnormalities in the lower lung fiel ds with loss of aeration within the bronchi. The appearance of bibasilar early and without definite m ass or adenopathy are visualized metastatic disease in the chest suggest inflammatory cause of mucus plugging may be because of the change of the lung boyd since the x-rays in September of 2016. Bronch oscopy in this gentleman may be of benefit. Dictated by: Beck Cedeño M.D. on 07/23/2017 at 17:34 Approved by: Beck Cedeño M.D. on 07/23/2017 at 17:39
[2017-07-23] MEDS ORDERED: Glucose 40% Oral Gel 15 Gm Tube PO PRN (17:55)
[2017-07-23] MEDS ORDERED: Dextrose 10% 250 ML IV PRN (18:10)
[2017-07-23] MEDS: guaiFENesin 600 mg ER12 Tablet PO SCH (20:30)
[2017-07-23] MEDS: Insulin LISPRO 300 Unit/3 mL Inj SUBQ SCH (22:00)
[2017-07-24] VITALS (13 sets, daily range): BP systolic 135–162; BP diastolic 82–98; PULSE 80–104; RESP 18–20; O2SAT 89–95
[2017-07-24] MEDS: MethylprednisoLONE Sodium Succinate 40 mg/mL Inj IVPUSH SCH ×2 (00:30→13:47)
--- NOTE | 2017-07-24 01:18 | NUR ---
Sleep Pt has not been able to sleep this shift and is requesting Benadryl for sleep. States "I have taken it at home and it helps me sleep." Per pt "I would like to not have to take Oxy anymore, and it is not helping with sleep and barely helping with pain because the pain is due to my breathing." Pt also states "I use marijuana to help me sleep when I am at home." Night hospitalist notified, no new orders at this time.
[2017-07-24] MEDS: Heparin 5,000 Unit/mL Inj SUBQ SCH ×3 (01:32→16:48)
[2017-07-24] MEDS: guaiFENesin 600 mg ER12 Tablet PO SCH ×2 (01:34→21:29)
[2017-07-24] MEDS: Polyethylene Glycol (PEG) 17 Gm Powder PO PRN ×2 (02:13→21:30)
--- NOTE | 2017-07-24 07:18 | NUR ---
Refused AM Labs Pt refused AM labs this morning per NOC shift; will talk to pt and alert MD in rounds. Care ongoing.
[2017-07-24] MEDS: Albuterol-Ipratropium 3 mL Inhalation Solution NEB SCH ×4 (07:46→21:56)
[2017-07-24] MEDS: Insulin LISPRO 300 Unit/3 mL Inj SUBQ SCH ×4 (08:00→22:00)
[2017-07-24] MEDS: Albuterol 2.5 mg/3 mL Inhalation Solution NEB PRN (08:05)
[2017-07-24] MEDS: Fluticasone-Salmererol 250-50 Inhaler INHALATION SCH ×2 (09:12→21:30)
[2017-07-24 09:34] LABS: BASOPHILS % (AUTO) 0.1 % (0-3); EOSINOPHILS % (AUTO) 0 % (0-5); MONOCYTES % (AUTO) 5.9 % (4-12); Mean Corpuscular Hemoglobin 31.9 pg (27.0-35.0); Mean Corpuscular Volume 94.4 fL (81-100); NEUTROPHILS % (AUTO) 90.3 % (40-74); Platelet Count 212 bil/L (150-400)
[2017-07-24] MEDS: Lidocaine Topical 5% Patch TOPICAL SCH (13:00)
--- NOTE | 2017-07-24 15:50 | PCM.PNMED ---
Subjective Date of Service Jul 24, 2017 Subjective Pt reports SOB overnight. Pain w/ deep inspiration, difficulty clearing phlegm. Exam Vital Signs Vital Sign - Last Date Time Temp Pulse Resp B/P Pulse Ox O2 Delivery O2 Flow Rate FiO2 07/24/17 13:30 36.6 89 18 142/85 91 Nasal Cannula 1.00 Intake and Output 07/23/17 07/23/17 07/24/17 Cumulative From/Thru 15:00 23:00 07:00 07/22/17 16:58 - 07/24/17 06:24 Intake Total 450 ml 450 ml Output Total 450 ml 2150 ml Balance 0 ml -1700 ml Intake Oral 450 ml 450 ml Output Urine Total 450 ml 2150 ml # Bowel Movements 0 0 Exam General: No acute distress, appropriately interactive HEENT: Normocephalic, atraumatic. PERRLA, EOMI, Anicteric sclerae, moist conjunctivae. Neck: No JVD, No bruits. No lymphadenopathy or thyromegaly. Cardiovascular: Regular heart rate and rhythm, there is a 2+ systolic heart murmur, no rub or gallop noted however Pulmonary: b/l air sound significant wheezing, tight, no crackles or rhonchi Abdomen: +Bowel sound, Soft, nontender, nondistended. Extremities: No clubbing or cyanosis, no lymphedema, no b/l lower leg edema Skin: Normal temperature, turgor, and texture; no rash. No visualized skin ulcer. Neurological: CN II-VII grossly intact, moving equally on all 4 extremities Psychiatric: Normal mood and affect. AOx3 IVs and Medications Medications Reviewed: Medications were reviewed in detail Lab and Diagnostics Result Diagram: 07/24/1792107/24/17921 X-Rays, CTs and MRIs 07/23/17- CT CHEST WITHOUT CONTRAST- There are bibasilar right greater than left aeration abnormalities in the lower lung boyd with loss of aeration within the bronchi. The appearance of bibasilar early and without definite mass or adenopathy are visualized metastatic disease in the chest suggest inflammatory cause of mucus plugging may be because of the change of the lung boyd since the x-rays in September of 2016. Bronchoscopy in this gentleman may be of benefit. PROCEDURE: X-RAY CHEST, TWO VIEWS ([id number]) INDICATIONS: SHORT OF BREATH IMPRESSION: Focal right basilar airspace opacity suspicious for aspiration, atelectasis, or infection. Dictated by: Sarah Johnson M.D. on 07/22/2017 at 17:57 Cardiac Echo Impressions Left ventricular wall thickness is mildly increased. Left ventricular systolic function is normal without focal wall motion abnormalities. The ejection fraction is estimated to be 55-60%. LVEF has not changed since prior study. The right ventricle is normal in size, thickness and function. Pulmonary artery pressures cannot be estimated because of the lack of a measurable TR jet velocity. Both atria are normal in size. There is no significant valvular heart disease. Assessment & Plan Patient is a 72-year-old male with medical history significant for COPD, asthma , and hypertension presents with significant shortness of breath, admitted for COPD exacerbation COPD/Asthma acute on chronic exacerbation, POA -May be 2/2 to underlying pna. 2nd to rib pain, unable to clear phlegm. -Solu-Medrol 40 mg every 12 hours, DuoNeb q4h while awake --continue home advair, albuterol 2.5 q2h PRN, mucinex 600 mg PO BID --ABG: no concern for resp depression. Maintain O2 sat 88-92% - Antibiotics- started on Azithromycin 07/22 and Cefepime 07/24. - Chest CT- bibasilar right greater than left aeration abnormalities in the lower lung boyd with loss of aeration within the bronchi - Pulmonary Consulted, Dr. Herber Trotter, f/u recs. Repeat CXR- 2 view, broaden abx. Pulmonary Hygiene. Monitor for radiological improvement. Hold off Bronchoscopy for now. Multiple rib fractures, POA -Mildly displaced right third and fifth rib fractures -changed oxycodone-apap 5-325mg half dose Q2H prn -- Lidoderm patch, Tylenol IV 1 g 3 times a day when necessary -- Thoracic spine x-ray- no fracture seen. Elevated troponin of uncertain significance POA, resolved. -likely demand. -ASA 81mg given, ordered atorvastatin 20mg. : pt ddi not want to take aspirin -Troponin mildly elevated at 0.[address]-T changes, ck/ck-mb negative -Trending troponin, normalized x 2 HLD- poa, active- - suggested starting Statin, pt will consider. Leukocytosis unknown chronicity, POA, active. -CXR possible atelectasis. has right 3rd and 5th rib fracture -Likely steroid-induced -mild concerns for pneumonia given chronic prednisone 10mg BID -Procalcitonin ordered, received -cont azithromycin Essential Hypertension presumed stable -restart home lisinopril -Lopressor 2.5-5mg IV should SBP consistently >180mmgh Depression chronic presumed stable -restart home fluoxetine Hyperglycemia acute 07/23 -Likely due to Steroids. A1c is ordered and pending --Started him on low SSI Patient Status: Patient is admitted under inpatient status with expected length of stay GREATER than 2 midnights due to severity of presenting symptoms, risk of adverse event, and complexity of treatment plan. Pain Evaluation: Adequate Pain Control VTE Mechanical Devices: Intermittant Pneumatic CD Resuscitation Status: CPR: Attempt Resuscitation Silviano Fields MD Jul 24, 2017 15:50 --Started him on low SSI CODE STATUS full code DVT prophylaxis heparin subq Patient Status: Patient is admitted under inpatient status with expected length of stay GREATER than 2 midnights due to severity of presenting symptoms, risk of adverse event, and complexity of treatment plan. Patient can be discharged home to self-care once he has pain and symptom relief. Reviewed the CT scan with Dr. Herber Trotter prior to d/c. Aslo discuss pro-BNP w/ cardiology. VTE Mechanical Devices: Intermittant Pneumatic CD Resuscitation Status: CPR: Attempt Resuscitation Silviano Fields MD Jul 24, 2017 15:50
[2017-07-24] MEDS ORDERED: 0.9% Sodium Chloride 100 ML ONE (16:37)
[2017-07-24] MEDS: Cefepime Inj 1,000 MG in Dextrose 5% Minibag Plus 50 ML IV SCH (16:39)
--- NOTE | 2017-07-24 17:10 | NUR ---
Benadryl/Telemetry Pt requested Bendadryl this evening to help him sleep and pt requests to come off telemetry; MD aware, no new orders. Care ongoing.
--- NOTE | 2017-07-24 19:34 | NUR ---
Cefepime Pt started on IV Cefepime as ordered and taking PO Zithromax; pt questioned is this necessary and stating "no one takes time to explain these things but you and why they are doing them?" to which RN responded with re-affirmation of what was told by the [employer] and the Hospitalist. Explained results of Echo done previous shift. Pt states verbal understanding and appreciation for explanation of medications and plan of care. Care ongoing
--- NOTE | 2017-07-24 23:01 | NUR ---
Sleep Pt requesting PO Benadryl for sleep. Would prefer to take this over the PO Oxy. Uses marijuana and beer at home to help him sleep. Per pt, Benadryl has helped him in the past for sleep. Night hospitalist notified, orders for PO Benadryl 25mg 1 X dose.
[2017-07-24] MEDS ORDERED: diphenhydrAMINE 25 mg Capsule PO ONE (23:10)
[2017-07-25] VITALS (9 sets, daily range): BP systolic 144–161; BP diastolic 90–98; PULSE 70–100; RESP 18–20; O2SAT 89–96
[2017-07-25] MEDS: Heparin 5,000 Unit/mL Inj SUBQ SCH ×3 (00:34→17:11)
[2017-07-25] MEDS: MethylprednisoLONE Sodium Succinate 40 mg/mL Inj IVPUSH SCH ×2 (02:05→12:44)
[2017-07-25] MEDS: Cefepime Inj 1,000 MG in Dextrose 5% Minibag Plus 50 ML IV SCH ×2 (05:36→17:12)
[2017-07-25] MEDS: Albuterol-Ipratropium 3 mL Inhalation Solution NEB SCH ×4 (07:44→20:40)
[2017-07-25 08:03] LABS: BASOPHILS % (AUTO) 0.1 % (0-3); EOSINOPHILS % (AUTO) 0 % (0-5); MONOCYTES % (AUTO) 4.4 % (4-12); Mean Corpuscular Volume 95.1 fL (81-100); NEUTROPHILS % (AUTO) 91.5 % (40-74); Platelet Count 188 bil/L (150-400)
[2017-07-25] MEDS: Lidocaine Topical 5% Patch TOPICAL SCH (08:10)
[2017-07-25] MEDS: Insulin LISPRO 300 Unit/3 mL Inj SUBQ SCH ×4 (09:12→22:00)
[2017-07-25] MEDS: guaiFENesin 600 mg ER12 Tablet PO SCH ×2 (09:13→20:56)
[2017-07-25] MEDS: Fluticasone-Salmererol 250-50 Inhaler INHALATION SCH ×2 (09:16→20:49)
--- NOTE | 2017-07-25 10:22 | DRSVH ---
PROCEDURE: X-RAY CHEST, TWO VIEWS ([id number]) INDICATIONS: RLL pneumonia, copd exacerbation TECHNIQUE: 2 views of the chest were acquired. COMPARISON: [facility], CR, XR CHEST 2VW, 10/08/2016, 10:17. [facility], CR, CHEST 2VW, 10/15/2011, 17:08. [facility], CT, CT CHEST WO CON, 07/23/2017, 16:51 . [facility], CR, XR CHEST 2VW, 07/22/2017, 17:29. FINDINGS: Surgical changes and devices: None. Lungs and pleura: Small right pleural effusion present in bibasilar airspace opacities are redemonstr ated, right greater than left similar to recent CT scan. Lungs otherwise are clear. Mediastinum: Mediastinal contours are normal. Heart size is normal. Bones and chest wall: No suspicious bony abnormalities. Soft tissues appear unremarkable. IMPRESSION: 1. Bibasilar airspace opacities, right greater than left suggestive of bilateral pneumonia. Continued plain film surveillance is recommended to ensure resolution, and to exclude underlying or central ma lignancy. 2. Trace right basilar pleural effusion. Dictated by: Prasanna TONG Interpreted: Jazmín Ceja MD on 07/25/2017 at 9:53 Approved by: Jazmín Ceja M.D. on 07/25/2017 at 10:20
--- NOTE | 2017-07-25 13:40 | PCM.PNMED ---
Subjective Date of Service Jul 25, 2017 Subjective Pt still requiring oxygen overnight. Exam Vital Signs Vital Sign - Last Date Time Temp Pulse Resp B/P Pulse Ox O2 Delivery O2 Flow Rate FiO2 07/25/17 13:01 36.7 88 18 159/95 91 Nasal Cannula 1.00 Intake and Output 07/24/17 07/24/17 07/25/17 Cumulative From/Thru 15:00 23:00 07:00 07/22/17 16:58 - 07/25/17 06:39 Intake Total 800 ml 1400 ml 640 ml 3290 ml Output Total 700 ml 1000 ml 580 ml 4430 ml Balance 100 ml 400 ml 60 ml -1140 ml Intake Oral 800 ml 1400 ml 640 ml 3290 ml Output Urine Total 700 ml 1000 ml 580 ml 4430 ml # Voids 2 2 4 # Bowel Movements 0 0 1 1 Exam General: No acute distress, appropriately interactive HEENT: Normocephalic, atraumatic. PERRLA, EOMI, Anicteric sclerae, moist conjunctivae. Neck: No JVD, No bruits. No lymphadenopathy or thyromegaly. Cardiovascular: Regular heart rate and rhythm, there is a 2+ systolic heart murmur, no rub or gallop noted however Pulmonary: b/l wheezing Abdomen: +Bowel sound, Soft, nontender, nondistended. Extremities: No clubbing or cyanosis, no lymphedema, no b/l lower leg edema Skin: Normal temperature, turgor, and texture; no rash. No visualized skin ulcer. Neurological: CN II-VII grossly intact, moving equally on all 4 extremities Psychiatric: Normal mood and affect. AOx3 IVs and Medications Medications Reviewed: Medications were reviewed in detail Lab and Diagnostics Result Diagram: 07/25/17 0730 07/24/17 0922 X-Rays, CTs and MRIs - 07/25- CXR- 1. Bibasilar airspace opacities, right greater than left suggestive of bilateral pneumonia. Continued plain film surveillance is recommended to ensure resolution, and to exclude underlying or central malignancy. 2. Trace right basilar pleural effusion. 07/23/17- CT CHEST WITHOUT CONTRAST- There are bibasilar right greater than left aeration abnormalities in the lower lung boyd with loss of aeration within the bronchi. The appearance of bibasilar early and without definite mass or adenopathy are visualized metastatic disease in the chest suggest inflammatory cause of mucus plugging may be because of the change of the lung boyd since the x-rays in September of 2016. Bronchoscopy in this gentleman may be of benefit. PROCEDURE: X-RAY CHEST, TWO VIEWS ([id number]) INDICATIONS: SHORT OF BREATH IMPRESSION: Focal right basilar airspace opacity suspicious for aspiration, atelectasis, or infection. Dictated by: Sarah Johnson M.D. on 07/22/2017 at 17:57 Cardiac Echo Impressions Left ventricular wall thickness is mildly increased. Left ventricular systolic function is normal without focal wall motion abnormalities. The ejection fraction is estimated to be 55-60%. LVEF has not changed since prior study. The right ventricle is normal in size, thickness and function. Pulmonary artery pressures cannot be estimated because of the lack of a measurable TR jet velocity. Both atria are normal in size. There is no significant valvular heart disease. Assessment & Plan Patient is a 72-year-old male with medical history significant for COPD, asthma , and hypertension presents with significant shortness of breath, admitted for COPD exacerbation COPD/Asthma acute on chronic exacerbation, POA. -,May be due to underlying b/l PNA. consider atelectasis due limited inspiration from rib pain, unable to clear phlegm. -continue home advair, albuterol, mucinex 600 mg PO BID - Maintain O2 sat 88-92%, pt not on hm 02. - IV Steroids- Solu-Medrol 40 mg every 12 hours, DuoNeb q4h. - Pulmonary Consulted, Dr. Trotter, Initial recs- repeat imaging to monitor for radiographic resolution will be needed. Pulmonary Hygiene including IS/ Acapella. Hold off Bronchoscopy for now. Broaden Abx to Azithromycin and Cefepime. Bibasilar opacities, poa, active- suggestive of PNA. Consider atelectasis or malignancy. Leukcytosis 13.6 on admit, peak 18.9, now dowtrending- may due to chronic steroids. Afebrile. - 07/[address]- bibasilar right greater than left aeration abnormalities in the lower lung boyd with loss of aeration within the bronchi. Repeat 07/25- CXR - Bibasilar opacities, R>L suggestive of bilateral pneumonia. Trace right basilar pleural effusion. - Antibiotics- started on Azithromycin 07/22 and Cefepime 07/24. - Blood and Sputum Cultures collected 07/25. Procalcitonin negative. - Pulmonary consulted, see above recs. Multiple rib fractures, POA -Mildly displaced right third and fifth rib fractures. Thoracic spine x-ray- no fracture seen. -Changed oxycodone-apap 5-325mg half dose Q2H prn -- Lidoderm patch. Tylenol IV 1 g 3 times a day when necessary Elevated troponin of uncertain significance POA, resolved. -likely demand. -ASA 81mg given, ordered atorvastatin 20mg. -Troponin peaked 0.[address]-T changes HLD- poa, active- - suggested starting Statin, pt will consider. Essential Hypertension presumed stable -restart home lisinopril -Lopressor 2.5-5mg IV should SBP consistently >180mmgh Depression chronic presumed stable -restart home fluoxetine Hyperglycemia acute 07/23 -Likely due to Steroids. A1c is ordered and pending --Started him on low SSI Patient Status: Patient is admitted under inpatient status with expected length of stay GREATER than 2 midnights due to severity of presenting symptoms, risk of adverse event, and complexity of treatment plan. VTE Prophylaxis: Sub-Q Heparin (Unfractionated) VTE Mechanical Devices: Intermittant Pneumatic CD Resuscitation Status: CPR: Attempt Resuscitation Silviano Fields MD Jul 25, 2017 13:40
--- NOTE | 2017-07-25 16:29 | NUR ---
Shift Note Antibiotics, steroids, breathing treatments continue. Had a shower today and felt lightheaded after, increased 02 to 2L. Patient persistently wheezing and tachypneic throughout the day; seems winded with conversation even in bed but unbothered by it. Sputum and blood cultures obtained today. Saturation goal 88-92%. Does well working with the acapella and IS breathing machines frequently on his own.
--- NOTE | 2017-07-25 17:33 | PCM.PNMED ---
Subjective Date of Service Jul 25, 2017 Subjective 72 year old man with long history of intrinsic asthma and COPD admitted for CP and SOB after a ground level fall in which he sustained several rib fractures. Less SOB today. Was able to produce a good quality sputum for culture. Denies fever, chills Using Acapella regularly Exam Vital Signs Vital Sign - Last Date Time Temp Pulse Resp B/P Pulse Ox O2 Delivery O2 Flow Rate FiO2 07/25/17 16:26 Supplement Oxygen 07/25/17 15:45 80 18 91 1.00 07/25/17 13:01 36.7 159/95 Intake and Output 07/24/17 07/24/17 07/25/17 Cumulative From/Thru 15:00 23:00 07:00 07/22/17 16:58 - 07/25/17 06:39 Intake Total 800 ml 1400 ml 640 ml 3290 ml Output Total 700 ml 1000 ml 580 ml 4430 ml Balance 100 ml 400 ml 60 ml -1140 ml Intake Oral 800 ml 1400 ml 640 ml 3290 ml Output Urine Total 700 ml 1000 ml 580 ml 4430 ml # Voids 2 2 4 # Bowel Movements 0 0 1 1 Exam Thin chronically ill man who appears older than his stated age Lungs Improved air movement at both bases. Scattered rhonchi, especially at bases CV Distant Hts, no m/g/r IVs and Medications Medications Reviewed: Medications were reviewed in detail Lab and Diagnostics Result Diagram: 07/25/17 0730 07/24/17 0922 X-Rays, CTs and MRIs 07/23/17- CT CHEST WITHOUT CONTRAST- There are bibasilar right greater than left aeration abnormalities in the lower lung boyd with loss of aeration within the bronchi. The appearance of bibasilar early and without definite mass or adenopathy are visualized metastatic disease in the chest suggest inflammatory cause of mucus plugging may be because of the change of the lung boyd since the x-rays in September of 2016. Bronchoscopy in this gentleman may be of benefit. PROCEDURE: X-RAY CHEST, TWO VIEWS ([id number]) INDICATIONS: SHORT OF BREATH IMPRESSION: Focal right basilar airspace opacity suspicious for aspiration, atelectasis, or infection. Dictated by: Sarah Johnson M.D. on 07/22/2017 at 17:57 Cardiac Echo Impressions Left ventricular wall thickness is mildly increased. Left ventricular systolic function is normal without focal wall motion abnormalities. The ejection fraction is estimated to be 55-60%. LVEF has not changed since prior study. The right ventricle is normal in size, thickness and function. Pulmonary artery pressures cannot be estimated because of the lack of a measurable TR jet velocity. Both atria are normal in size. There is no significant valvular heart disease. Assessment & Plan Patient is a 72-year-old male with medical history significant for COPD, asthma , and hypertension presents with significant shortness of breath, admitted for COPD exacerbation IMP Acute exacerbation of asthma and COPD. Appears improved on IV steroids, nebs and abx Abnormal CXR He has circumferential thickening of the bronchus for the anterobasal segment of the RLL. This may be inflammatory but is mildly suspicious a neoplastic process. If this does not resolve radiographically, he may need bronchoscopy to R/O endobronchial lesion. REC Continue current cefepime, axithro, solumedrol and nebs IgE level tomorrow although this may underestimate his chronic level given recent course of IV steroids Pulm toilet Repeat CXR in AM to f/u on his RLL atelectasis Pain Evaluation: Adequate Pain Control VTE Mechanical Devices: Intermittant Pneumatic CD Resuscitation Status: CPR: Attempt Resuscitation Lawrence Trotter MD Jul 25, 2017 17:33
[2017-07-25] MEDS: diphenhydrAMINE 25 mg Capsule PO PRN ×2 (20:51→23:41)
[2017-07-25] MEDS: Albuterol 2.5 mg/3 mL Inhalation Solution NEB PRN (23:50)
[2017-07-26] VITALS (8 sets, daily range): BP systolic 134–158; BP diastolic 72–88; PULSE 74–103; RESP 18–22; O2SAT 94–97
[2017-07-26] MEDS: Heparin 5,000 Unit/mL Inj SUBQ SCH ×3 (00:41→16:32)
[2017-07-26] MEDS: MethylprednisoLONE Sodium Succinate 40 mg/mL Inj IVPUSH SCH ×2 (00:41→13:08)
--- NOTE | 2017-07-26 04:24 | NUR ---
Breathing Patient O2 saturation at 97% on 1L, O2 turned off. Requested single breathing treatment this shift. Pain in right shoulder, refuses pain medication. Lower lobes sound diminished and remaining lobes are speckled with occasion crackles. c/o difficulty breathing with activity. Monitoring closely.
[2017-07-26] MEDS: Cefepime Inj 1,000 MG in Dextrose 5% Minibag Plus 50 ML IV SCH ×2 (04:57→16:30)
[2017-07-26 07:38] LABS: EOSINOPHILS % (AUTO) 0 % (0-5); Mean Corpuscular Hemoglobin 31.9 pg (27.0-35.0); Mean Corpuscular Volume 94.9 fL (81-100); Platelet Count 196 bil/L (150-400)
--- NOTE | 2017-07-26 07:58 | NUR ---
Off unit Patient off floor to x-ray via W/C.
[2017-07-26] MEDS: Insulin LISPRO 300 Unit/3 mL Inj SUBQ SCH ×4 (08:00→22:00)
[2017-07-26 08:08] LABS: BASOPHILS % (AUTO) 0 % (0-3); MONOCYTES % (AUTO) 5 % (4-12); NEUTROPHILS % (AUTO) 86 % (40-74)
--- NOTE | 2017-07-26 08:13 | NUR ---
Back on Unit Patient back on floor from x-ray.
[2017-07-26] MEDS: Albuterol-Ipratropium 3 mL Inhalation Solution NEB SCH ×4 (08:54→20:20)
[2017-07-26] MEDS: Fluticasone-Salmererol 250-50 Inhaler INHALATION SCH ×2 (09:09→20:32)
[2017-07-26] MEDS: guaiFENesin 600 mg ER12 Tablet PO SCH ×2 (09:10→20:37)
--- NOTE | 2017-07-26 11:55 | PCM.PNMED ---
Subjective Date of Service Jul 26, 2017 Subjective Pt's SOB is improved. Off oxygen this AM. Says still gets SOB with exertion. Exam Vital Signs Vital Sign - Last Date Time Temp Pulse Resp B/P Pulse Ox O2 Delivery O2 Flow Rate FiO2 07/26/17 09:15 87 158/72 07/26/17 08:54 20 95 Room Air 07/26/17 04:46 36.4 07/25/17 23:50 1.00 Intake and Output 07/25/17 07/25/17 07/26/17 Cumulative From/Thru 15:00 23:00 07:00 07/22/17 16:58 - 07/26/17 06:11 Intake Total 1000 ml 1120 ml 5410 ml Output Total 1000 ml 1100 ml 775 ml 7305 ml Balance -1000 ml -100 ml 345 ml -1895 ml Intake Oral 1000 ml 1120 ml 5410 ml Output Urine Total 1000 ml 1100 ml 775 ml 7305 ml # Voids 1 5 # Bowel Movements 0 1 2 Exam General: No acute distress, appropriately interactive HEENT: Normocephalic, atraumatic. PERRLA, EOMI, Anicteric sclerae, moist conjunctivae. Neck: No JVD, No bruits. No lymphadenopathy or thyromegaly. Cardiovascular: Regular heart rate and rhythm, there is a 2+ systolic heart murmur, no rub or gallop noted however Pulmonary: b/l wheezing- improved Abdomen: +Bowel sound, Soft, nontender, nondistended. Extremities: No clubbing or cyanosis, no lymphedema, no b/l lower leg edema Skin: Normal temperature, turgor, and texture; no rash. No visualized skin ulcer. Neurological: CN II-VII grossly intact, moving equally on all 4 extremities Psychiatric: Normal mood and affect. AOx3 IVs and Medications Medications Reviewed: Medications were reviewed in detail Lab and Diagnostics Result Diagram: 07/26/17 0729 07/24/17 0922 X-Rays, CTs and MRIs 07/23/17- CT CHEST WITHOUT CONTRAST- There are bibasilar right greater than left aeration abnormalities in the lower lung boyd with loss of aeration within the bronchi. The appearance of bibasilar early and without definite mass or adenopathy are visualized metastatic disease in the chest suggest inflammatory cause of mucus plugging may be because of the change of the lung boyd since the x-rays in September of 2016. Bronchoscopy in this gentleman may be of benefit. PROCEDURE: X-RAY CHEST, TWO VIEWS ([id number]) INDICATIONS: SHORT OF BREATH IMPRESSION: Focal right basilar airspace opacity suspicious for aspiration, atelectasis, or infection. Dictated by: Sarah Johnson M.D. on 07/22/2017 at 17:57 Cardiac Echo Impressions Left ventricular wall thickness is mildly increased. Left ventricular systolic function is normal without focal wall motion abnormalities. The ejection fraction is estimated to be 55-60%. LVEF has not changed since prior study. The right ventricle is normal in size, thickness and function. Pulmonary artery pressures cannot be estimated because of the lack of a measurable TR jet velocity. Both atria are normal in size. There is no significant valvular heart disease. Assessment & Plan Patient is a 72-year-old male with medical history significant for COPD, asthma , and hypertension presents with significant shortness of breath, admitted for COPD/Asthma exacerbation COPD/Asthma acute on chronic exacerbation, POA. -,May be due to underlying b/l PNA. consider atelectasis due limited inspiration from rib pain. -continue home advair, albuterol, mucinex 600 mg PO BID - Maintain O2 sat 88-92%, pt not on hm 02. - IV Steroids- Solu-Medrol 40 mg every 12 hours, DuoNeb q4h. - Pulmonary Consulted, Dr. Trotter- recs- repeat imaging to monitor for radiographic resolution will be needed. Pulmonary Hygiene including IS/ Acapella. Hold off Bronchoscopy for now. Broaden Abx to Azithromycin and Cefepime. Check IgE. Bibasilar opacities, poa, active- suggestive of PNA. Consider atelectasis or malignancy. Leukcytosis 13.6 on admit, peak 18.9, now dowtrending- may due to chronic steroids. Afebrile. - 07/[address]- bibasilar right greater than left aeration abnormalities in the lower lung boyd with loss of aeration within the bronchi. Repeat 07/25- CXR - Bibasilar opacities, R>L suggestive of bilateral pneumonia. Trace right basilar pleural effusion. - Antibiotics- started on Azithromycin 07/22 and Cefepime 07/24. - Blood and Sputum Cultures collected 8/31. Procalcitonin negative. - Pulmonary consulted, see above recs. Multiple rib fractures, POA -Mildly displaced right third and fifth rib fractures. Thoracic spine x-ray- no fracture seen. -Changed oxycodone-apap 5-325mg half dose Q2H prn -- Lidoderm patch. Tylenol IV 1 g 3 times a day when necessary Elevated troponin of uncertain significance POA, resolved. -likely demand. -ASA 81mg given, ordered atorvastatin 20mg. -Troponin peaked 0.[address]-T changes HLD- poa, active- - suggested starting Statin, pt will consider. Essential Hypertension presumed stable -restart home lisinopril -Lopressor 2.5-5mg IV should SBP consistently >180mmgh Depression chronic presumed stable -restart home fluoxetine Hyperglycemia acute 07/23 -Likely due to Steroids. A1c is ordered and pending --Started him on low SSI VTE Mechanical Devices: Intermittant Pneumatic CD Resuscitation Status: CPR: Attempt Resuscitation Silviano Fields MD Jul 26, 2017 11:55
[2017-07-26] MEDS: Lidocaine Topical 5% Patch TOPICAL SCH (13:00)
[2017-07-26] MEDS ORDERED: 0.9% Sodium Chloride 100 ML ONE (16:16)
--- NOTE | 2017-07-26 16:21 | NUR ---
Social Work: Continued Discharge Planning/Multidisciplinary Rounds D: EMR reviewed. Pt is on day 4 of hospitalization. Pt discussed in multidisciplinary rounds and i not medically stable for discharge at this time, anticipate 2-3 more days pending Pulmonology - possible Bronchoscopy on Saturday. Pt's friend to provide transport home when medically ready. MD does not identify any concerns for pt capacity for self care at this time. Pt denies any needs at this time. [employer] to continue to follow for any needs or MD orders that arise. A: Pt who is independent at baseline P: Anticipated discharge home via POV when medically ready - pt does not qualify for [facility] transport per [facility]. Pt denies any needs at this time. SW to continue to follow for any needs or MD orders that arise. JOSE Govea
[2017-07-26] MEDS: diphenhydrAMINE 25 mg Capsule PO PRN (23:36)
[2017-07-27] MEDS: Heparin 5,000 Unit/mL Inj SUBQ SCH ×3 (00:35→18:15)
[2017-07-27] MEDS: MethylprednisoLONE Sodium Succinate 40 mg/mL Inj IVPUSH SCH ×2 (00:35→13:24)
[2017-07-27 03:53] VITALS: PULSE 74; RESP 20; O2SAT 96
[2017-07-27] MEDS: Albuterol-Ipratropium 3 mL Inhalation Solution NEB SCH ×4 (03:53→20:43)
[2017-07-27] MEDS: Cefepime Inj 1,000 MG in Dextrose 5% Minibag Plus 50 ML IV SCH ×2 (05:03→18:14)
--- NOTE | 2017-07-27 05:12 | NUR ---
Pain Patient asked if he could change is Roxycodone 2mg q2hr, to 5mg q4r. Patient stated he didn't feel the 2.5mg was sufficient to relieve his pain. After changing to the 5mg, patient stated it made him much more comfortable and was able to get some sleep. Patient accidentally pulled his IV this shift. New peripheral IV was started on patient promptly and IV fluids were continued.
[2017-07-27 05:44] LABS: EOSINOPHILS % (AUTO) 0 % (0-5); Mean Corpuscular Hemoglobin 31.6 pg (27.0-35.0); Mean Corpuscular Volume 93.7 fL (81-100); Platelet Count 179 bil/L (150-400)
[2017-07-27 05:47] VITALS: BP 126/83; PULSE 82; RESP 18; O2SAT 94
[2017-07-27 06:02] LABS: BASOPHILS % (AUTO) 0 % (0-3); MONOCYTES % (AUTO) 5 % (4-12); NEUTROPHILS % (AUTO) 87 % (40-74)
[2017-07-27 06:06] LABS: Phosphorus 3.2 mg/dL (2.5-4.9)
[2017-07-27] MEDS: Insulin LISPRO 300 Unit/3 mL Inj SUBQ SCH ×4 (08:00→22:00)
[2017-07-27] MEDS: Fluticasone-Salmererol 250-50 Inhaler INHALATION SCH ×2 (08:12→20:48)
[2017-07-27] MEDS: guaiFENesin 600 mg ER12 Tablet PO SCH ×2 (08:12→20:48)
--- NOTE | 2017-07-27 09:44 | DRSVH ---
PROCEDURE: X-RAY CHEST, TWO VIEWS ([id number]) INDICATIONS: SHORTNESS OF BREATH; BILATERAL INFILTRATES TECHNIQUE: 2 views of the chest were acquired. COMPARISON: [facility], CR, XR CHEST 2VW, 07/25/2017, 8:21. FINDINGS: Surgical changes and devices: None. Lungs and pleura: Small right pleural effusion present and bibasilar airspace opacities are redemonst rated, right greater than left similar to recent CT scan. Lungs otherwise are clear. Mediastinum: Mediastinal contours are normal. Heart size is normal. Bones and chest wall: No suspicious bony abnormalities. Soft tissues appear unremarkable. IMPRESSION: 1. Bibasilar airspace opacities, not significantly changed likely related to pneumonia. Continued ra diographic surveillance to resolution is recommended. 2. Trace right pleural effusion. Dictated by: Prasanna TONG Interpreted: Crystal Sánchez MD on 07/26/2017 at 10:12 Approved by: Crystal Sánchez M.D. on 07/27/2017 at 9:43
[2017-07-27] MEDS: Polyethylene Glycol (PEG) 17 Gm Powder PO PRN (10:13)
[2017-07-27 12:37] VITALS: BP 149/85; PULSE 73; RESP 18; O2SAT 95
[2017-07-27] MEDS: Lidocaine Topical 5% Patch TOPICAL SCH (13:00)
--- NOTE | 2017-07-27 13:08 | PCM.PNMED ---
Subjective Date of Service Jul 27, 2017 Subjective Pt has been off oxygen at rest, says feels SOB when walking more than 10 steps. Productive cough, has been using IS/Acapella. Exam Vital Signs Vital Sign - Last Date Time Temp Pulse Resp B/P Pulse Ox O2 Delivery O2 Flow Rate FiO2 07/27/17 12:37 36.5 73 18 149/85 95 Room Air 07/25/17 23:50 1.00 Intake and Output 07/26/17 07/26/17 07/27/17 Cumulative From/Thru 15:00 23:00 07:00 07/22/17 16:58 - 07/27/17 06:30 Intake Total 136 ml 814 ml 800 ml 7160 ml Output Total 650 ml 2150 ml 17492 ml Balance 136 ml 164 ml -1350 ml -2945 ml Intake Oral 800 ml 800 ml 7010 ml IV Total 136 ml 14 ml 150 ml Output Urine Total 650 ml 2150 ml 39547 ml # Voids 5 # Bowel Movements 0 0 2 Exam General: No acute distress, appropriately interactive HEENT: Normocephalic, atraumatic. PERRLA, EOMI, Anicteric sclerae, moist conjunctivae. Neck: No JVD, No bruits. No lymphadenopathy or thyromegaly. Cardiovascular: Regular heart rate and rhythm, there is a 2+ systolic heart murmur, no rub or gallop noted however Pulmonary: b/l wheezing- improved Abdomen: +Bowel sound, Soft, nontender, nondistended. Extremities: No clubbing or cyanosis, no lymphedema, no b/l lower leg edema Skin: Normal temperature, turgor, and texture; no rash. No visualized skin ulcer. Neurological: CN II-VII grossly intact, moving equally on all 4 extremities Psychiatric: Normal mood and affect. AOx3 IVs and Medications Medications Reviewed: Medications were reviewed in detail Lab and Diagnostics Result Diagram: 07/27/1752907/27/17529 X-Rays, CTs and MRIs 07/23/17- CT CHEST WITHOUT CONTRAST- There are bibasilar right greater than left aeration abnormalities in the lower lung boyd with loss of aeration within the bronchi. The appearance of bibasilar early and without definite mass or adenopathy are visualized metastatic disease in the chest suggest inflammatory cause of mucus plugging may be because of the change of the lung boyd since the x-rays in September of 2016. Bronchoscopy in this gentleman may be of benefit. PROCEDURE: X-RAY CHEST, TWO VIEWS ([id number]) INDICATIONS: SHORT OF BREATH IMPRESSION: Focal right basilar airspace opacity suspicious for aspiration, atelectasis, or infection. Dictated by: Sarah Johnson M.D. on 07/22/2017 at 17:57 Cardiac Echo Impressions Left ventricular wall thickness is mildly increased. Left ventricular systolic function is normal without focal wall motion abnormalities. The ejection fraction is estimated to be 55-60%. LVEF has not changed since prior study. The right ventricle is normal in size, thickness and function. Pulmonary artery pressures cannot be estimated because of the lack of a measurable TR jet velocity. Both atria are normal in size. There is no significant valvular heart disease. Assessment & Plan Patient is a 72-year-old male with medical history significant for COPD, asthma , and hypertension presents with significant shortness of breath, admitted for COPD/Asthma exacerbation COPD/Asthma acute on chronic exacerbation, POA. -,May be due to underlying b/l PNA. consider atelectasis due limited inspiration from rib pain. -continue home advair, albuterol, mucinex 600 mg PO BID - Maintain O2 sat 88-92%, pt not on hm 02. - IV Steroids- Solu-Medrol 40 mg every 12 hours, DuoNeb q4h. - Pt off oxygen at rest, still desats w/ ambulation. May need ambulating pulse ox if need to discharge on home 02. - Pulmonary Consulted, Dr. Trotter- recs- repeat imaging to monitor for radiographic resolution will be needed. Pulmonary Hygiene including IS/ Acapella. Hold off Bronchoscopy for now. Probable Pneumonia- poa ,active- CXR shows Bibasilar opacities. Consider atelectasis or malignancy. Leukcytosis 13.6 on admit, peak 18.9, now dowtrending - may due to chronic steroids. Afebrile. - 07/[address]- bibasilar right greater than left aeration abnormalities in the lower lung boyd with loss of aeration within the bronchi. Repeat 07/25- CXR - Bibasilar opacities, R>L suggestive of bilateral pneumonia. Trace right basilar pleural effusion. - Antibiotics- started on Azithromycin 07/22 and Cefepime 07/24. Will consider transition to PO antibiotics.. - Blood and Sputum Cultures- ngtd. Procalcitonin negative. - Serial CXR's. - Pulmonary consulted, see above recs. Multiple rib fractures, POA -Mildly displaced right third and fifth rib fractures. Thoracic spine x-ray- no fracture seen. -Pain- Oxycodone 5mg q4h prn. -Lidoderm patch. Tylenol IV 1 g 3 times a day when necessary Elevated troponin of uncertain significance POA, resolved. -likely demand. -ASA 81mg given, ordered atorvastatin 20mg. -Troponin peaked 0.[address]-T changes HLD- poa, active- - suggested starting Statin, pt will consider. Essential Hypertension presumed stable -restart home lisinopril -Lopressor 2.5-5mg IV should SBP consistently >180mmgh Depression chronic presumed stable -restart home fluoxetine Hyperglycemia acute 07/23 -Likely due to Steroids. A1c is ordered and pending --Started him on low SSI Status- Expect to stay greater than 2 midnights. VTE Prophylaxis: Sub-Q Heparin (Unfractionated) VTE Mechanical Devices: Intermittant Pneumatic CD Resuscitation Status: CPR: Attempt Resuscitation Silviano Fields MD Jul 27, 2017 13:08
[2017-07-27] MEDS ORDERED: 0.9% Sodium Chloride 250 ML ONE (13:20)
--- NOTE | 2017-07-27 19:30 | NUR ---
Pain Patient medicated with po oxycodone for chest/muscular pain. Patient on room air no resp distress noted. Patient with some wheezes noted.
[2017-07-27 20:27] VITALS: BP 153/81; PULSE 91; RESP 19; O2SAT 93
[2017-07-27 20:43] VITALS: PULSE 82; RESP 22; O2SAT 98
[2017-07-27 22:42] VITALS: BP 143/90; PULSE 83; RESP 20; O2SAT 91
[2017-07-27] MEDS: diphenhydrAMINE 25 mg Capsule PO PRN (23:35)
[2017-07-28] MEDS: MethylprednisoLONE Sodium Succinate 40 mg/mL Inj IVPUSH SCH ×2 (00:28→14:00)
[2017-07-28] MEDS: Heparin 5,000 Unit/mL Inj SUBQ SCH ×3 (00:28→17:30)
--- NOTE | 2017-07-28 01:29 | NUR ---
Pain Patient pain managed well with Roxycodone q4. Patient had a BM tonight. Patient states he has been coughing up some brownish flem. Patient's skin is bright red, but patient states it has been going on for a long time. Vitals stable. Breathing treatments as needed. Care of patient turned over to [facility] at 0115.
--- NOTE | 2017-07-28 03:21 | NUR ---
Assumed care Assumed pt's care from EDY Costa at 0115. Pt alert, oriented and able to make needs known. Pleasant and cooperative with care. Denies N/V/D resp distress and/or SOB. c/o pain and requested only 2.5mg of oxycodone instead of the full dose. 2.5mg oxycodone admin and the other 2.5mg destroyed with another RN and waste recorded in the [facility]. Good relief noted from pain management and pt asleep upon reassessment and pt is currently asleep at this moment. Will continue to monitor.
[2017-07-28] MEDS: Cefepime Inj 1,000 MG in Dextrose 5% Minibag Plus 50 ML IV SCH ×2 (04:31→18:28)
[2017-07-28 06:00] VITALS: BP 158/79; PULSE 75; RESP 20; O2SAT 93
[2017-07-28 06:10] LABS: Mean Corpuscular Hemoglobin 32.1 pg (27.0-35.0); Mean Corpuscular Volume 94.1 fL (81-100); Platelet Count 194 bil/L (150-400)
[2017-07-28 07:44] LABS: BASOPHILS % (AUTO) 0 % (0-3); EOSINOPHILS % (AUTO) 0 % (0-5); MONOCYTES % (AUTO) 4 % (4-12); NEUTROPHILS % (AUTO) 80 % (40-74)
[2017-07-28] MEDS: Insulin LISPRO 300 Unit/3 mL Inj SUBQ SCH ×4 (08:00→22:00)
[2017-07-28] MEDS: Albuterol-Ipratropium 3 mL Inhalation Solution NEB SCH ×3 (08:07→16:58)
[2017-07-28 08:08] VITALS: PULSE 86; RESP 22; O2SAT 90
--- NOTE | 2017-07-28 09:05 | NUR ---
JUSTIN signed by pt at bedside
[2017-07-28] MEDS: guaiFENesin 600 mg ER12 Tablet PO SCH ×2 (09:14→20:42)
[2017-07-28] MEDS: Fluticasone-Salmererol 250-50 Inhaler INHALATION SCH ×2 (09:15→20:41)
--- NOTE | 2017-07-28 11:50 | DRSVH ---
PROCEDURE: X-RAY CHEST, TWO VIEWS ([id number]) INDICATIONS: bilateral infiltrates TECHNIQUE: 2 views of the chest were acquired. COMPARISON: [facility], CR, XR CHEST 2VW, 07/26/2017, 8:04. FINDINGS: Surgical changes and devices: None. Lungs and pleura: No pleural effusions or pneumothorax. There are persistent bibasilar medial to ch ronic opacities consistent with consolidation, atelectasis, or aspiration.. Mediastinum: Mediastinal contours are unchanged. Heart size is normal. Bones and chest wall: No suspicious bony abnormalities. Soft tissues appear unremarkable. IMPRESSION: 1. Persistent medial bibasilar consolidation, atelectasis, or aspiration. Dictated by: Gunner Oh M.D. on 07/28/2017 at 11:48 Approved by: Gunner Oh M.D. on 07/28/2017 at 11:48
[2017-07-28 12:37] VITALS: BP 139/84; PULSE 77; RESP 20; O2SAT 92
[2017-07-28 12:55] VITALS: PULSE 81; RESP 22; O2SAT 91
[2017-07-28] MEDS: Lidocaine Topical 5% Patch TOPICAL SCH (13:00)
--- NOTE | 2017-07-28 14:37 | PCM.PNMED ---
Subjective Date of Service Jul 28, 2017 Subjective Pt still getting SOB w/ ambulation. Exam Vital Signs Vital Sign - Last Date Time Temp Pulse Resp B/P Pulse Ox O2 Delivery O2 Flow Rate FiO2 07/28/17 12:55 81 22 91 Room Air 07/28/17 12:37 36.7 139/84 07/25/17 23:50 1.00 Intake and Output 07/27/17 07/27/17 07/28/17 Cumulative From/Thru 15:00 23:00 07:00 07/22/17 16:58 - 07/28/17 06:40 Intake Total 620 ml 19 ml 7799 ml Output Total 350 ml 91263 ml Balance 270 ml 19 ml -2656 ml Intake Oral 620 ml 7630 ml IV Total 19 ml 169 ml Output Urine Total 350 ml 74463 ml # Voids 5 # Bowel Movements 0 2 Exam General: No acute distress, appropriately interactive HEENT: Normocephalic, atraumatic. PERRLA, EOMI, Anicteric sclerae, moist conjunctivae. Neck: No JVD, No bruits. No lymphadenopathy or thyromegaly. Cardiovascular: Regular heart rate and rhythm, there is a 2+ systolic heart murmur, no rub or gallop noted however Pulmonary: b/l wheezing, improved air entry Abdomen: +Bowel sound, Soft, nontender, nondistended. Extremities: No clubbing or cyanosis, no lymphedema, no b/l lower leg edema Skin: Normal temperature, turgor, and texture; no rash. No visualized skin ulcer. Neurological: CN II-VII grossly intact, moving equally on all 4 extremities Psychiatric: Normal mood and affect. AOx3 IVs and Medications Medications Reviewed: Medications were reviewed in detail Lab and Diagnostics Result Diagram: 07/28/1751907/28/17 05 X-Rays, CTs and MRIs 07/23/17- CT CHEST WITHOUT CONTRAST- There are bibasilar right greater than left aeration abnormalities in the lower lung boyd with loss of aeration within the bronchi. The appearance of bibasilar early and without definite mass or adenopathy are visualized metastatic disease in the chest suggest inflammatory cause of mucus plugging may be because of the change of the lung boyd since the x-rays in September of 2016. Bronchoscopy in this gentleman may be of benefit. PROCEDURE: X-RAY CHEST, TWO VIEWS ([id number]) INDICATIONS: SHORT OF BREATH IMPRESSION: Focal right basilar airspace opacity suspicious for aspiration, atelectasis, or infection. Dictated by: Sarah Johnson M.D. on 07/22/2017 at 17:57 Cardiac Echo Impressions Left ventricular wall thickness is mildly increased. Left ventricular systolic function is normal without focal wall motion abnormalities. The ejection fraction is estimated to be 55-60%. LVEF has not changed since prior study. The right ventricle is normal in size, thickness and function. Pulmonary artery pressures cannot be estimated because of the lack of a measurable TR jet velocity. Both atria are normal in size. There is no significant valvular heart disease. Assessment & Plan Patient is a 72-year-old male with medical history significant for COPD, asthma , and hypertension presents with significant shortness of breath, admitted for COPD/Asthma exacerbation COPD/Asthma acute on chronic exacerbation, POA. -,May be due to underlying b/l PNA. consider atelectasis due limited inspiration from rib pain. -continue home advair, albuterol, mucinex 600 mg PO BID - Maintain O2 sat 88-92%, pt not on 02. - IV Steroids- Solu-Medrol 40 mg every 12 hours, DuoNeb q4h. - Pt off oxygen at rest, still desats w/ ambulation. May need ambulating pulse ox if need to discharge on home 02. - Pulmonary Consulted, Dr. Trotter- f/u recs. Probable Pneumonia- poa ,active- CXR shows Bibasilar opacities. Consider atelectasis or malignancy. Leukcytosis 13.6 on admit, peak 18.9, now dowtrending - may due to chronic steroids. Afebrile. - 07/[address]- bibasilar right greater than left aeration abnormalities in the lower lung boyd with loss of aeration within the bronchi. Repeat 07/25- CXR - Bibasilar opacities, R>L suggestive of bilateral pneumonia. Trace right basilar pleural effusion. - Antibiotics- started on Azithromycin 07/22 and Cefepime 07/24. Will consider transition to PO antibiotics.. - Blood and Sputum Cultures- ngtd. Procalcitonin negative. - Serial CXR's don't show radiographic resolution. - Pulmonary consulted, see above recs. Multiple rib fractures, POA -Mildly displaced right third and fifth rib fractures. Thoracic spine x-ray- no fracture seen. -Pain- Oxycodone 5mg q4h prn. -Lidoderm patch. Tylenol IV 1 g 3 times a day when necessary Elevated troponin of uncertain significance POA, resolved. -likely demand. -ASA 81mg given, ordered atorvastatin 20mg. -Troponin peaked 0.[address]-T changes HLD- poa, active- - suggested starting Statin, pt will consider. Essential Hypertension presumed stable -restart home lisinopril -Lopressor 2.5-5mg IV should SBP consistently >180mmgh Depression chronic presumed stable -restart home fluoxetine Hyperglycemia acute 07/23 -Likely due to Steroids. A1c is ordered and pending --Started him on low SSI Status- Expect to stay greater than 2 midnights. Pain Evaluation: Adequate Pain Control VTE Prophylaxis: Sub-Q Heparin (Unfractionated) VTE Mechanical Devices: Intermittant Pneumatic CD Resuscitation Status: CPR: Attempt Resuscitation Silviano Fields MD Jul 28, 2017 14:37
[2017-07-28] MEDS ORDERED: Lactated Ringer's 1,000 ML IV ONE (15:19)
[2017-07-28] MEDS ORDERED: Lidocaine PF 2% 10 mL Inj MUC_MEMBRM PRN (15:20)
--- NOTE | 2017-07-28 15:37 | PCM.PNMED ---
Subjective Date of Service Jul 28, 2017 Subjective 72 yo former smoker with COPD and asthma admitted for poorly controlled chest wall pain after ground level fall and right sided rib fractures. His pain and dyspnea have improved since admission however his CXR shows persistent/ progressive atelectasis at the medial Rt. base in an area that on CT had slightly suspicious thickening of the segmental airway. INTERVAL HISTORY Speaks in full sentences and reports that his pain is improved and he is less SOB. His cough is now productive of brownish sputum with ronal blood or purulence. No fevers, chills, sweats. I discussed at length with him the CXR findings and my recommendation that he undergo bronchoscopy to exclude an obstructing process in his RLL. A full discussion of the procedure, alternatives, and risks was held. Specific risks cited include those associated with procedural sedation, bleeding, introduction of infection, damage to lung requiring additional procedures and failure to reach a diagnosis. He has agreed to proceed and the Nursing supervisor maintenance has kindly agreed to arrange for the Endoscopy team to be available at 9am tomorrow. Orders have been written for pre-op needs. Exam Vital Signs Vital Sign - Last Date Time Temp Pulse Resp B/P Pulse Ox O2 Delivery O2 Flow Rate FiO2 07/28/17 12:55 81 22 91 Room Air 07/28/17 12:37 36.7 139/84 07/25/17 23:50 1.00 Intake and Output 07/27/17 07/27/17 07/28/17 Cumulative From/Thru 15:00 23:00 07:00 07/22/17 16:58 - 07/28/17 06:40 Intake Total 620 ml 19 ml 7799 ml Output Total 350 ml 81478 ml Balance 270 ml 19 ml -2656 ml Intake Oral 620 ml 7630 ml IV Total 19 ml 169 ml Output Urine Total 350 ml 48407 ml # Voids 5 # Bowel Movements 0 2 Exam Thin chronically ill man in NAD, appears slightly anxious, even manic with rapid pressured speech. Lungs Improved air movement. Coarse crackles at both bases. Rare wheezes CV distant heart tones, RRR, no m/g/r IVs and Medications Medications Reviewed: Medications were reviewed in detail Lab and Diagnostics Reviewed in detail Result Diagram: 07/28/17 0520 07/28/17 0520 X-Rays, CTs and MRIs 07/23/17- CT CHEST WITHOUT CONTRAST- There are bibasilar right greater than left aeration abnormalities in the lower lung boyd with loss of aeration within the bronchi. The appearance of bibasilar early and without definite mass or adenopathy are visualized metastatic disease in the chest suggest inflammatory cause of mucus plugging may be because of the change of the lung boyd since the x-rays in September of 2016. Bronchoscopy in this gentleman may be of benefit. PROCEDURE: X-RAY CHEST, TWO VIEWS ([id number]) INDICATIONS: SHORT OF BREATH IMPRESSION: Focal right basilar airspace opacity suspicious for aspiration, atelectasis, or infection. Dictated by: Sarah Johnson M.D. on 07/22/2017 at 17:57 12-lead ECG Personally reviewed. NSR, Lt axis c/w LAFB, LVH with repolarization changes. Cardiac Echo Impressions Left ventricular wall thickness is mildly increased. Left ventricular systolic function is normal without focal wall motion abnormalities. The ejection fraction is estimated to be 55-60%. LVEF has not changed since prior study. The right ventricle is normal in size, thickness and function. Pulmonary artery pressures cannot be estimated because of the lack of a measurable TR jet velocity. Both atria are normal in size. There is no significant valvular heart disease. Assessment & Plan IMP Acute exacerbation of asthma and COPD now with progressive atelectasis of RLL. Bronchoscopy planned for am tomorrow to rule out an endobronchial process. REC Flexible bronchoscopy at 9am 09/04 with conscious sedation. NPO after MN Pain Evaluation: Adequate Pain Control VTE Prophylaxis: Sub-Q Heparin (Unfractionated) VTE Mechanical Devices: Intermittant Pneumatic CD Resuscitation Status: CPR: Attempt Resuscitation Lawrence Trotter MD Jul 28, 2017 15:37 - Serial CXR's don't show radiographic resolution. - Pulmonary consulted, see above recs. Multiple rib fractures, POA -Mildly displaced right third and fifth rib fractures. Thoracic spine x-ray- no fracture seen. -Pain- Oxycodone 5mg q4h prn. -Lidoderm patch. Tylenol IV 1 g 3 times a day when necessary Elevated troponin of uncertain significance POA, resolved. -likely demand. -ASA 81mg given, ordered atorvastatin 20mg. -Troponin peaked 0.[address]-T changes HLD- poa, active- - suggested starting Statin, pt will consider. Essential Hypertension presumed stable -restart home lisinopril -Lopressor 2.5-5mg IV should SBP consistently >180mmgh Depression chronic presumed stable -restart home fluoxetine Hyperglycemia acute 07/23 -Likely due to Steroids. A1c is ordered and pending --Started him on low SSI Status- Expect to stay greater than 2 midnights. VTE Prophylaxis: Sub-Q Heparin (Unfractionated) VTE Mechanical Devices: Intermittant Pneumatic CD Resuscitation Status: CPR: Attempt Resuscitation Lawrence Trotter MD Jul 28, 2017 15:37
[2017-07-28 16:59] VITALS: PULSE 90; RESP 20; O2SAT 92
[2017-07-28] MEDS: Polyethylene Glycol (PEG) 17 Gm Powder PO PRN (17:42)
[2017-07-28 19:40] VITALS: BP 149/81; PULSE 63; RESP 18; O2SAT 93
--- NOTE | 2017-07-28 19:51 | NUR ---
Pain/disposition Patient with right sided chest wall pain has rib fractures related to glf he had on 07/22/17. Patient with congested cough and brownish sputum noted. Lungs wheezy/coarse. Pulmonary Dr was consulted who came to speak with patient and has ordered a bronchoscopy for tomorrow. Patient noted to have change in mood , very brief in conversation which was a change from earlier patient asked if he was ok at tis time. Patient became tearful was crying said he got bad news. I sat with patient and let him vent which he thanked me for and said he felt better.
[2017-07-29] VITALS (9 sets, daily range): BP systolic 117–140; BP diastolic 68–87; PULSE 70–86; RESP 16–20; O2SAT 92–96
[2017-07-29] MEDS: diphenhydrAMINE 25 mg Capsule PO PRN ×2 (00:13→23:12)
[2017-07-29] MEDS: Heparin 5,000 Unit/mL Inj SUBQ SCH ×3 (00:23→17:40)
[2017-07-29] MEDS: MethylprednisoLONE Sodium Succinate 40 mg/mL Inj IVPUSH SCH ×2 (00:23→13:07)
[2017-07-29] MEDS: Albuterol-Ipratropium 3 mL Inhalation Solution NEB SCH ×5 (00:31→20:30)
--- NOTE | 2017-07-29 04:27 | NUR ---
Respiratory Pain Pt requests PRN narcotic at and benadryll shortly after. Reports a depressive episode earlier in the day, after he found out the necessity of a bronchoscopy. Informed by Bronchoscopy RN that he may need AM heparin held. IV running LR at tko, remains on room air, no SOB and no chest pain (except rib pain). Care continues
[2017-07-29] MEDS: Cefepime Inj 1,000 MG in Dextrose 5% Minibag Plus 50 ML IV SCH ×2 (06:30→17:40)
[2017-07-29] MEDS: Insulin LISPRO 300 Unit/3 mL Inj SUBQ SCH ×4 (08:00→22:00)
[2017-07-29] MEDS ORDERED: Lidocaine Topical 2% 30 mL Jelly ONE (08:17)
[2017-07-29] MEDS ORDERED: fentaNYL-PF 50 mCg/mL 2 mL Inj IVPUSH PRN (09:00)
--- NOTE | 2017-07-29 09:01 | NUR ---
Endo Pt. transferred to Endo for bronchoscopy at 0900. Addendum: 07/29/17 at 1045 by ASHER SIMMONS RN Pt. returned to [facility] at 1030. Alert, oriented, and JUSTIN on arrival.
[2017-07-29 09:56] LABS: EOSINOPHILS % (AUTO) 0 % (0-5); Mean Corpuscular Hemoglobin 31.9 pg (27.0-35.0); Mean Corpuscular Volume 94.2 fL (81-100); Platelet Count 221 bil/L (150-400)
[2017-07-29] MEDS: guaiFENesin 600 mg ER12 Tablet PO SCH ×3 (10:33→21:16)
[2017-07-29] MEDS: Fluticasone-Salmererol 250-50 Inhaler INHALATION SCH ×2 (11:16→21:16)
[2017-07-29 11:23] LABS: BASOPHILS % (AUTO) 0 % (0-3); MONOCYTES % (AUTO) 3 % (4-12); NEUTROPHILS % (AUTO) 79 % (40-74)
[2017-07-29 12:21] LABS: BFWBC 1200 /mm3
[2017-07-29 12:22] LABS: MONOCYTES,BODY FLUID 50 %; OTHER CELLS,BODY FLUID 0
--- NOTE | 2017-07-29 12:40 | PCM.PNMED ---
Subjective Date of Service Jul 29, 2017 Subjective Pt going for planned Bronchoscopy today. Exam Vital Signs Vital Sign - Last Date Time Temp Pulse Resp B/P Pulse Ox O2 Delivery O2 Flow Rate FiO2 07/29/17 12:07 36.6 70 18 125/83 93 Room Air 07/29/17 10:14 2 Intake and Output 07/28/17 07/28/17 07/29/17 Cumulative From/Thru 15:00 23:00 07:00 07/22/17 16:58 - 07/29/17 06:30 Intake Total 708 ml 1200 ml 400 ml 48180 ml Output Total 1470 ml 1300 ml 1240 ml 20446 ml Balance -762 ml -100 ml -840 ml -4358 ml Intake Oral 708 ml 1200 ml 400 ml 9938 ml IV Total 169 ml Output Urine Total 1470 ml 1300 ml 1240 ml 01724 ml # Voids 5 # Bowel Movements 0 0 2 Exam General: No acute distress, appropriately interactive HEENT: Normocephalic, atraumatic. PERRLA, EOMI, Anicteric sclerae, moist conjunctivae. Neck: No JVD, No bruits. No lymphadenopathy or thyromegaly. Cardiovascular: Regular heart rate and rhythm, there is a 2+ systolic heart murmur, no rub or gallop noted however Pulmonary: b/l wheezing Abdomen: +Bowel sound, Soft, nontender, nondistended. Extremities: No clubbing or cyanosis, no lymphedema, no b/l lower leg edema Skin: Normal temperature, turgor, and texture; no rash. No visualized skin ulcer. Neurological: CN II-VII grossly intact, moving equally on all 4 extremities Psychiatric: Normal mood and affect. AOx3 Lab and Diagnostics Result Diagram: 07/29/17 0848 07/28/17 0520 X-Rays, CTs and MRIs 07/23/17- CT CHEST WITHOUT CONTRAST- There are bibasilar right greater than left aeration abnormalities in the lower lung boyd with loss of aeration within the bronchi. The appearance of bibasilar early and without definite mass or adenopathy are visualized metastatic disease in the chest suggest inflammatory cause of mucus plugging may be because of the change of the lung boyd since the x-rays in September of 2016. Bronchoscopy in this gentleman may be of benefit. PROCEDURE: X-RAY CHEST, TWO VIEWS ([id number]) INDICATIONS: SHORT OF BREATH IMPRESSION: Focal right basilar airspace opacity suspicious for aspiration, atelectasis, or infection. Dictated by: Sarah Johnson M.D. on 07/22/2017 at 17:57 12-lead ECG Personally reviewed. NSR, Lt axis c/w LAFB, LVH with repolarization changes. Cardiac Echo Impressions Left ventricular wall thickness is mildly increased. Left ventricular systolic function is normal without focal wall motion abnormalities. The ejection fraction is estimated to be 55-60%. LVEF has not changed since prior study. The right ventricle is normal in size, thickness and function. Pulmonary artery pressures cannot be estimated because of the lack of a measurable TR jet velocity. Both atria are normal in size. There is no significant valvular heart disease. Assessment & Plan Patient is a 72-year-old male with medical history significant for COPD, asthma , and hypertension presents with significant shortness of breath, admitted for COPD/Asthma exacerbation COPD/Asthma acute on chronic exacerbation, POA. -,May be due to underlying b/l PNA. consider atelectasis due limited inspiration from rib pain. -continue home advair, albuterol, mucinex 600 mg PO BID - Maintain O2 sat 88-92%, pt not on hm 02. - IV Steroids- Solu-Medrol 40 mg every 12 hours, DuoNeb q4h. - Pt off oxygen at rest, still desats w/ ambulation. May need ambulating pulse ox if need to discharge on home 02. - Pulmonary Consulted, Dr. Trotter- Pt going for planned Bronchoscopy today. Probable Pneumonia- poa ,active- CXR shows Bibasilar opacities. Consider atelectasis or malignancy. Leukocytosis 13.6 on admit, peak 18.9, may be partly due to chronic steroids. Afebrile. - 07/[address]- bibasilar right greater than left aeration abnormalities in the lower lung boyd with loss of aeration within the bronchi. Repeat 07/25- CXR - Bibasilar opacities, R>L suggestive of bilateral pneumonia. Trace right basilar pleural effusion. - Antibiotics- started on Azithromycin 07/22 and Cefepime 07/24. Will consider transition to PO antibiotics.. - Blood and Sputum Cultures- ngtd. Procalcitonin negative. - Serial CXR's don't show radiographic resolution. - Pulmonary consulted, see above recs. Multiple rib fractures, POA -Mildly displaced right third and fifth rib fractures. Thoracic spine x-ray- no fracture seen. -Pain- Oxycodone 5mg q4h prn. -Lidoderm patch. Tylenol IV 1 g 3 times a day when necessary Elevated troponin of uncertain significance POA, resolved. -likely demand. -ASA 81mg given, ordered atorvastatin 20mg. -Troponin peaked 0.[address]-T changes HLD- poa, active- - suggested starting Statin, pt will consider. Essential Hypertension presumed stable -restart home lisinopril -Lopressor 2.5-5mg IV should SBP consistently >180mmgh Depression chronic presumed stable -restart home fluoxetine Hyperglycemia acute 07/23 -Likely due to Steroids. A1c is ordered and pending --Started him on low SSI Status- Expect to stay greater than 2 midnights. VTE Prophylaxis: Sub-Q Heparin (Unfractionated) VTE Mechanical Devices: Intermittant Pneumatic CD Resuscitation Status: CPR: Attempt Resuscitation Silviano Fields MD Jul 29, 2017 12:40
[2017-07-29] MEDS: Lidocaine Topical 5% Patch TOPICAL SCH (13:00)
--- NOTE | 2017-07-29 14:19 | PROCED ---
[address] [address] PROCEDURE NOTE PATIENT: IRASEMA SPARKS : 1945 MR#: [id number] ADMIT: 07/22/2017 JOB ID: [id number] DATE OF SERVICE: 07/29/2017 POSTOPERATIVE DIAGNOSIS(ES): Pneumonia and lobar atelectasis. PREOPERATIVE DIAGNOSIS(ES): Pneumonia, lobar atelectasis secondary to mucus plugging. SURGEON: Lawrence Trotter MD. PROCEDURE: Flexible video bronchoscopy. PROCEDURE SUMMARY: After written informed consent, flexible video bronchoscopy was performed. The patient was brought to the endoscopy department. IV access was established. Topical upper airway anesthesia was obtained with approximately 20 cc of 2% lidocaine via atomizer and direct spray. In addition, nasal vasoconstriction was achieved with oxymetazoline nasal spray. The patient was sedated with midazolam and fentanyl, 2.5 mg and 75 mcg in total, respectively of each. While being continuously monitored, a flexible video bronchoscope was passed via the right naris which was widely patent. This was advanced to the level of the true vocal cords which were normal in appearance and moved well. These were anesthetized with additional 2% lidocaine delivered via the suction channel of the scope. The scope was passed through the cords and along the trachea with careful inspection thereof. The main haven was encountered which was normal and sharp in appearance. This was further anesthetized with 2% lidocaine via the suction channel of the scope. The scope was then advanced into the left mainstem bronchus. All segments of left upper lobe lingula and left lower lobe were rapidly inspected and found to be entirely normal but for diffuse changes of chronic bronchitis with mucosal atrophy, pitting, and longitudinal light bands. Furthermore, there was a large mucus plug found within the left lower lobe bronchus which with sustained suction I was able to remove. The underlying mucosa was confirmed to be normal but for the above changes of chronic bronchitis. The scope was then returned to the haven and advanced down the right mainstem bronchus. Right upper lobe showed generalized changes of chronic bronchitis as were present on the left. The scope was advanced in the bronchus intermedius and rapidly encountered complete obstruction due to a tenacious mucus plug. With firm sustained suction, this also was ultimately removed, although it required several withdrawals of the scope as the suction channel became obstructed due to the tenacious secretions. Ultimately, these were lavaged free and the underlying mucosa was inspected and found to be normal but for generalized changes of chronic bronchitis. There were absolutely no obstructing lesions and all airways were inspected to at least the 3rd order in the right middle lobe superior segmental bronchus and all basal segmental bronchi of the right lower lobe. The scope was then advanced into a wedge position in the anterobasal segment of the right lower lobe. Bronchoalveolar lavage was performed using standard technique. I had return of approximately 10 cc of turbid, light yellowish-brown material without gross blood. This will be submitted for analysis. The remaining lavage fluid was then suctioned from the tracheobronchial tree. The scope was withdrawn and the procedure completed. SPECIMENS: Bronchoalveolar lavage fluid for bacterial culture and sensitivity, Mycobacterial culture, fungal culture, cytology, cell count and differential. PATIENT CONDITION FOLLOWING PROCEDURE: Awake, alert, with stable oxygen saturation on 4 L by nasal cannula. FOLLOWUP PLAN: The patient will remain in hospital overnight and his primary service and consulting service will follow up on the results of bronchoscopy prior to or shortly after his discharge.
--- NOTE | 2017-07-29 14:43 | NUR ---
Social Work: Continued Discharge Planning/Multidisciplinary Rounds D: EMR reviewed. Pt is on day 7 of hospitalization. Pt discussed in multidisciplinary rounds and is not medically stable for discharge at this time, anticipate 1-2 more days. Pt to receive Bronchoscopy today. Pt's friend to provide transport home when medically ready. MD does not identify any concerns for pt capacity for self care at this time. Pt denies any needs at this time. SW will continue to follow for any needs or MD orders that arise. A: Pt who is independent at baseline P: Pt anticipated discharge home via POV when medically ready - pt does not qualify for [facility] transport per [facility]. Pt denies any needs at this time. No SW needs identified at this time. SW will continue to follow for any needs or MD orders that arise. JOSE Govea
--- NOTE | 2017-07-29 16:04 | PCM.PNMED ---
Subjective Date of Service Jul 29, 2017 Subjective 72 yo former smoker with COPD and asthma admitted for poorly controlled chest wall pain after ground level fall and right sided rib fractures. His pain and dyspnea have improved since admission however his CXR shows persistent/ progressive atelectasis at the medial Rt. base in an area that on CT had slightly suspicious thickening of the segmental airway. INTERVAL HISTORY Bronchoscopy today with procedure and results summarized in report. In brief, he has generalized mucosal changes of chronic bronchitis but NO discrete endobronchial pathology visible on a good exam to at least the 3rd order bronchi in all lobes. There were thick mucus plugs in both lower lobes that were fully cleared with lavage and gentle suctioning. He appeared to tolerate the procedure well Exam Vital Signs Vital Sign - Last Date Time Temp Pulse Resp B/P Pulse Ox O2 Delivery O2 Flow Rate FiO2 07/29/17 12:07 36.6 70 18 125/83 93 Room Air 07/29/17 10:14 2 Intake and Output 07/28/17 07/28/17 07/29/17 Cumulative From/Thru 14:59 22:59 06:59 07/22/17 16:58 - 07/29/17 06:30 Intake Total 708 ml 1200 ml 400 ml 28466 ml Output Total 1470 ml 1300 ml 1240 ml 35181 ml Balance -762 ml -100 ml -840 ml -4358 ml Intake Oral 708 ml 1200 ml 400 ml 9938 ml IV Total 169 ml Output Urine Total 1470 ml 1300 ml 1240 ml 45276 ml # Voids 5 # Bowel Movements 0 0 2 Exam No change in exam IVs and Medications Medications Reviewed: Medications were reviewed in detail Lab and Diagnostics Result Diagram: 07/29/17 0848 07/28/17 0520 X-Rays, CTs and MRIs 07/23/17- CT CHEST WITHOUT CONTRAST- There are bibasilar right greater than left aeration abnormalities in the lower lung boyd with loss of aeration within the bronchi. The appearance of bibasilar early and without definite mass or adenopathy are visualized metastatic disease in the chest suggest inflammatory cause of mucus plugging may be because of the change of the lung boyd since the x-rays in September of 2016. Bronchoscopy in this gentleman may be of benefit. PROCEDURE: X-RAY CHEST, TWO VIEWS ([id number]) INDICATIONS: SHORT OF BREATH IMPRESSION: Focal right basilar airspace opacity suspicious for aspiration, atelectasis, or infection. Dictated by: Sarah Johnson M.D. on 07/22/2017 at 17:57 12-lead ECG Personally reviewed. NSR, Lt axis c/w LAFB, LVH with repolarization changes. Cardiac Echo Impressions Left ventricular wall thickness is mildly increased. Left ventricular systolic function is normal without focal wall motion abnormalities. The ejection fraction is estimated to be 55-60%. LVEF has not changed since prior study. The right ventricle is normal in size, thickness and function. Pulmonary artery pressures cannot be estimated because of the lack of a measurable TR jet velocity. Both atria are normal in size. There is no significant valvular heart disease. Assessment & Plan IMP Acute exacerbation of asthma and COPD now with progressive atelectasis of RLL. Bronchoscopy has ruled out an obstructing lesion and successfully cleared thick plugs in both lower lobes. REC Continued pulmonary toilet with bronchodilators, Acapella, cough and deep breathing. Encourage mobility and time out of bed. DC Cefepime after 7 days or is No Growth on cultures from today's BAL Change steroids to PO and wean slowly Followup micro and cytology from today's bronchoscopy. I will be leaving [facility] tomorrow and Dr. Burger will assume my role in this gentleman's care. VTE Prophylaxis: Sub-Q Heparin (Unfractionated) VTE Mechanical Devices: Intermittant Pneumatic CD Resuscitation Status: CPR: Attempt Resuscitation Lawrence Trotter MD Jul 29, 2017 16:00
--- NOTE | 2017-07-29 17:06 | NUR ---
Behavior Pt. was noted sleeping soundly in the mid-afternoon. When he woke up and he screamed angrily and loudly. He complained about "I called for help for over 15 minutes, I am in pain. No one answered my call. It there a green party outside the room, what are these people laughing about outside my room? I'm very pissed off." Pt. requested 2.5mg Roxicodone but then changed his mind when 2.5 mg was prepared for him, "I think I want the whole pill this time." 5 mg Roxicodone given for R. rib pain 06/03. Pt. refused physical assessment, he stated in a raised voice, "I want to be alone right now. I'm still pissed. Close the door." * (According to the windows desktop support, no call lights from pt. requesting assistance)
[2017-07-29] MEDS: Polyethylene Glycol (PEG) 17 Gm Powder PO PRN (23:06)
[2017-07-30] VITALS (7 sets, daily range): BP systolic 127–137; BP diastolic 66–82; PULSE 68–91; RESP 16–20; O2SAT 91–96
[2017-07-30] MEDS: MethylprednisoLONE Sodium Succinate 40 mg/mL Inj IVPUSH SCH ×2 (01:06→12:30)
[2017-07-30] MEDS: Heparin 5,000 Unit/mL Inj SUBQ SCH ×3 (01:06→16:14)
[2017-07-30] MEDS: Cefepime Inj 1,000 MG in Dextrose 5% Minibag Plus 50 ML IV SCH ×2 (04:08→16:20)
--- NOTE | 2017-07-30 05:47 | NUR ---
Anxiety During initial assessment, patient appears to be anxious. Asked patient to voice concerns about hospital stay. Patient stated that RT explained some results of bronchoscopy and patient felt more at ease but still spoke fast and seemed fidgety. Patient stated pain 6/10 on pain scale. Requested 5mg of oxycodone instead of 2.5mg PO. VSS. Call light within reach. Care continues.
[2017-07-30] MEDS: Albuterol-Ipratropium 3 mL Inhalation Solution NEB SCH ×3 (07:31→16:19)
[2017-07-30] MEDS: Insulin LISPRO 300 Unit/3 mL Inj SUBQ SCH ×4 (08:00→22:00)
[2017-07-30] MEDS: Fluticasone-Salmererol 250-50 Inhaler INHALATION SCH ×2 (08:16→20:56)
[2017-07-30] MEDS: guaiFENesin 600 mg ER12 Tablet PO SCH ×2 (08:17→20:57)
[2017-07-30] MEDS: Lidocaine Topical 5% Patch TOPICAL SCH (12:34)
--- NOTE | 2017-07-30 15:27 | PROG NOTE ---
[address] [address] PROGRESS NOTE PATIENT: IRASEMA SPARKS : 1945 MR#: [id number] ADMIT: 07/22/2017 JOB ID: [id number] DATE: 07/30/2017 PULMONARY FOLLOW UP NOTE: PROBLEMS: 1. Atelectasis secondary to mucous plugging secondary to multiple rib fractures. 2. Acute exacerbation of COPD. Breathing much more comfortably today. Able to take a deeper breath. Doing better with the incentive spirometer. Coughed up a small amount of relatively thinner mucus. Maybe a slight blood-streaked. Otherwise was not so dark, being a route delivery clerk yellow color. Chest pain is somewhat better. Did not have particular problems coughing up the phlegm. OBJECTIVE: Temperature 36.4. Pulse of 68-79, respiratory rate 16, blood pressure 133/66, O2 sat on room air varies from 91%-94%. General appearance: No acute distress. Lying in bed though moving around somewhat gingerly though not with appreciable limitations. Eyes: Conjunctivae are pink. Chest: Fairly good breath sounds bilaterally in the anterior lung boyd. Heart: Regular rhythm. Heart tones normal. Abdomen: Soft. Bowel tones present. LABORATORY DATA: Shows a sputum Gram stain from bronchoscopy with a few polys. A few mixed rafal with growing only normal rafal. ASSESSMENT: 1. Atelectasis secondary to mucous plugging. Seems to be doing quite a bit better. The bronchoscopy has been quite effective in alleviating much of his problem. Able to bring up the thinner phlegm without particular problem. 2. Multiple rib fractures. Some improvement in pain control. 3. Acute exacerbation of chronic obstructive pulmonary disease. Doing rather well. No particular problems. Mucous plugging and rib fractures seem to be the more prominent problems. PLAN: Continue current regimen. Encouraged incentive spirometry as well as use of the incentive spirometer, the latter after being after nebulizer treatments.
--- NOTE | 2017-07-30 15:57 | PCM.PNMED ---
Subjective Date of Service Jul 30, 2017 Subjective Pt had Bronchoscopy yesterday and has had marked improvement in SOB, Respiratory secretions, and cough. Exam Vital Signs Vital Sign - Last Date Time Temp Pulse Resp B/P Pulse Ox O2 Delivery O2 Flow Rate FiO2 07/30/17 15:44 36.8 89 20 129/81 93 Room Air 07/29/17 10:14 2 Intake and Output 07/29/17 07/29/17 07/30/17 Cumulative From/Thru 15:00 23:00 07:00 07/22/17 16:58 - 07/30/17 06:27 Intake Total 420 ml 1264 ml 966 ml 25126 ml Output Total 450 ml 500 ml 36210 ml Balance 420 ml 814 ml 466 ml -2658 ml Intake Oral 820 ml 828 ml 89209 ml IV Total 420 ml 444 ml 138 ml 1171 ml Output Urine Total 450 ml 500 ml 87828 ml # Voids 5 # Bowel Movements 0 2 Exam General: No acute distress, appropriately interactive HEENT: Normocephalic, atraumatic. PERRLA, EOMI, Anicteric sclerae, moist conjunctivae. Neck: No JVD, No bruits. No lymphadenopathy or thyromegaly. Cardiovascular: Regular heart rate and rhythm, there is a 2+ systolic heart murmur, no rub or gallop noted however Pulmonary: greatly improved air entry bilaterally, some mild wheezing. Abdomen: +Bowel sound, Soft, nontender, nondistended. Extremities: No clubbing or cyanosis, no lymphedema, no b/l lower leg edema Skin: Normal temperature, turgor, and texture; no rash. No visualized skin ulcer. Neurological: CN II-VII grossly intact, moving equally on all 4 extremities Psychiatric: Normal mood and affect. AOx3 IVs and Medications Medications Reviewed: Medications were reviewed in detail Lab and Diagnostics Result Diagram: 07/29/17 0848 07/28/17 0520 X-Rays, CTs and MRIs 07/23/17- CT CHEST WITHOUT CONTRAST- There are bibasilar right greater than left aeration abnormalities in the lower lung boyd with loss of aeration within the bronchi. The appearance of bibasilar early and without definite mass or adenopathy are visualized metastatic disease in the chest suggest inflammatory cause of mucus plugging may be because of the change of the lung boyd since the x-rays in September of 2016. Bronchoscopy in this gentleman may be of benefit. PROCEDURE: X-RAY CHEST, TWO VIEWS ([id number]) INDICATIONS: SHORT OF BREATH IMPRESSION: Focal right basilar airspace opacity suspicious for aspiration, atelectasis, or infection. Dictated by: Sarah Johnson M.D. on 07/22/2017 at 17:57 12-lead ECG Personally reviewed. NSR, Lt axis c/w LAFB, LVH with repolarization changes. Cardiac Echo Impressions Left ventricular wall thickness is mildly increased. Left ventricular systolic function is normal without focal wall motion abnormalities. The ejection fraction is estimated to be 55-60%. LVEF has not changed since prior study. The right ventricle is normal in size, thickness and function. Pulmonary artery pressures cannot be estimated because of the lack of a measurable TR jet velocity. Both atria are normal in size. There is no significant valvular heart disease. Assessment & Plan Patient is a 72-year-old male with medical history significant for COPD, asthma , and hypertension presents with significant shortness of breath, admitted for COPD/Asthma exacerbation w/ RLL Atelectasis s/p Bronchoscopy on 07/28 that ruled out an obstructing lesion and successfully cleared thick plugs in both lower lobes. COPD/Asthma acute on chronic exacerbation, POA. - Bronchoscopy on 07/28 that ruled out an obstructing lesion and successfully cleared thick plugs in both lower lobes. -continue home advair, albuterol, mucinex 600 mg PO BID - Maintain O2 sat 88-92%, pt not on hm 02. - Pulmonary Following -s/p 07/29 Bronchoscopy. Recs below Continued pulmonary toilet with bronchodilators, Acapella, cough and deep breathing. Encourage mobility and time out of bed. DC Cefepime after 7 days or if No Growth on 07/29 cultures from BAL Change steroids to PO and wean slowly Followup micro and cytology from today's bronchoscopy. Probable Pneumonia- poa ,active- CXR shows Bibasilar opacities. Consider atelectasis or malignancy. Leukocytosis 13.6 on admit, peak 18.9, may be partly due to chronic steroids. Afebrile. - 07/[address]- bibasilar right greater than left aeration abnormalities in the lower lung boyd with loss of aeration within the bronchi. Repeat 07/25- CXR - Bibasilar opacities, R>L suggestive of bilateral pneumonia. Trace right basilar pleural effusion. - Antibiotics- started on Azithromycin 07/22 and Cefepime 07/24. Will consider transition to PO antibiotics pending BAL 07/28 cultures. - Blood and Sputum Cultures- ngtd. Procalcitonin negative. - Serial CXR's don't show radiographic resolution. - Pulmonary consulted, see above recs. Multiple rib fractures, POA -Mildly displaced right third and fifth rib fractures. Thoracic spine x-ray- no fracture seen. -Pain- Oxycodone 5mg q4h prn. -Lidoderm patch. Tylenol IV 1 g 3 times a day when necessary Elevated troponin of uncertain significance POA, resolved. -likely demand. -ASA 81mg given, ordered atorvastatin 20mg. -Troponin peaked 0.[address]-T changes HLD- poa, active- - suggested starting Statin, pt will consider. Essential Hypertension presumed stable -restart home lisinopril -Lopressor 2.5-5mg IV should SBP consistently >180mmgh Depression chronic presumed stable -restart home fluoxetine Hyperglycemia acute 07/23 -Likely due to Steroids. A1c is ordered and pending --Started him on low SSI Dispo- expected length of stay greater than 2 midnights due to severity of presenting symptoms, risk of adverse events, and complexity of treatment plan. Will need to decide on antibiotics pending BAL cultures from 07/28. Will need slow Prednisone taper upon discharge. VTE Prophylaxis: Sub-Q Heparin (Unfractionated) VTE Mechanical Devices: Intermittant Pneumatic CD Resuscitation Status: CPR: Attempt Resuscitation Silviano Fields MD Jul 30, 2017 15:57
--- NOTE | 2017-07-30 16:29 | NUR ---
Ambulation and respiratory Pt. walked in the hallway, approx. 350 feet. SBA and he used a FWW for balance. SpO2 maintained at 92% or higher during activity without O2 supplement. He denied SOB with activity.
[2017-07-30] MEDS: predniSONE 20 mg Tablet PO SCH (20:55)
[2017-07-30] MEDS: diphenhydrAMINE 25 mg Capsule PO PRN (22:12)
[2017-07-31] VITALS (7 sets, daily range): BP systolic 133–148; BP diastolic 80–83; PULSE 79–95; RESP 16–20; O2SAT 93–97
[2017-07-31] MEDS: Heparin 5,000 Unit/mL Inj SUBQ SCH ×3 (00:30→16:05)
--- NOTE | 2017-07-31 02:21 | NUR ---
Anxiety Patient became very anxious and irritated during assessment when talking about possible discharge plans. Patient does not want to leave hospital because of smoke outside. Patient also stated that he feels he needs more time to prepare and arrange for help. Patient stated breathing has become much easier post bronchoscopy. Pain is 6/10 on pain scale due to fractured ribs. VSS. Call light is within reach. Care continues.
[2017-07-31] MEDS: Cefepime Inj 1,000 MG in Dextrose 5% Minibag Plus 50 ML IV SCH ×2 (05:00→16:05)
[2017-07-31] MEDS: Albuterol-Ipratropium 3 mL Inhalation Solution NEB SCH ×4 (07:09→20:46)
[2017-07-31] MEDS: Fluticasone-Salmererol 250-50 Inhaler INHALATION SCH ×3 (09:28→22:45)
[2017-07-31] MEDS: Insulin LISPRO 300 Unit/3 mL Inj SUBQ SCH ×4 (09:30→21:15)
[2017-07-31] MEDS: predniSONE 20 mg Tablet PO SCH ×2 (09:31→21:11)
[2017-07-31] MEDS: guaiFENesin 600 mg ER12 Tablet PO SCH ×2 (09:33→21:10)
--- NOTE | 2017-07-31 10:34 | PCM.PNMED ---
Subjective Date of Service Jul 31, 2017 Subjective Reports breathing feeling a lot better after bronchoscopy 2 days ago. Denies any other new issues/complaints. Feels a bit anxious about possibility of going home "too soon". Exam Vital Signs Vital Sign - Last Date Time Temp Pulse Resp B/P Pulse Ox O2 Delivery O2 Flow Rate FiO2 07/31/17 10:03 36.7 79 16 133/80 95 Room Air 07/29/17 10:14 2 Intake and Output 07/30/17 07/30/17 07/31/17 Cumulative From/Thru 15:00 23:00 07:00 07/22/17 16:58 - 07/31/17 06:00 Intake Total 1120 ml 254 ml 84351 ml Output Total 650 ml 36129 ml Balance 470 ml 254 ml -1934 ml Intake Oral 1120 ml 70521 ml IV Total 254 ml 1425 ml Output Urine Total 650 ml 09204 ml # Voids 5 # Bowel Movements 2 General: Alert, Cooperative, No Acute Distress Head: Normal Eyes: Scleral Anicteric Nose: Mucous Membr Moist/[place] Mouth: Mucous Membr Moist/[place] Neck: Supple Chest & Lungs: Chest Wall Normal, Clear to auscultation & percussion Cardiovascular: Regular Rate/Rhythm Pulses: NL carotid, radial, femoral, DP, PT Abdomen: Non-tender, Normoactive bowel tones, Soft Extremities: No cyanosis/clubbing/edma bilat Neurological: Grossly Neurologically Intact, Normal Speech IVs and Medications Medications Reviewed: Medications were reviewed in detail Lab and Diagnostics Result Diagram: 07/29/17 0848 07/28/17 0520 X-Rays, CTs and MRIs 07/23/17- CT CHEST WITHOUT CONTRAST- There are bibasilar right greater than left aeration abnormalities in the lower lung boyd with loss of aeration within the bronchi. The appearance of bibasilar early and without definite mass or adenopathy are visualized metastatic disease in the chest suggest inflammatory cause of mucus plugging may be because of the change of the lung boyd since the x-rays in September of 2016. Bronchoscopy in this gentleman may be of benefit. PROCEDURE: X-RAY CHEST, TWO VIEWS ([id number]) INDICATIONS: SHORT OF BREATH IMPRESSION: Focal right basilar airspace opacity suspicious for aspiration, atelectasis, or infection. Dictated by: Sarah Johnson M.D. on 07/22/2017 at 17:57 12-lead ECG Personally reviewed. NSR, Lt axis c/w LAFB, LVH with repolarization changes. Cardiac Echo Impressions Left ventricular wall thickness is mildly increased. Left ventricular systolic function is normal without focal wall motion abnormalities. The ejection fraction is estimated to be 55-60%. LVEF has not changed since prior study. The right ventricle is normal in size, thickness and function. Pulmonary artery pressures cannot be estimated because of the lack of a measurable TR jet velocity. Both atria are normal in size. There is no significant valvular heart disease. Additional Diagnostics: DATE OF SERVICE: 07/29/2017 PREOPERATIVE DIAGNOSIS(ES): Pneumonia, lobar atelectasis secondary to mucus plugging. SURGEON: Lawrence Trotter MD. PROCEDURE: Flexible video bronchoscopy. SPECIMENS: Bronchoalveolar lavage fluid for bacterial culture and sensitivity, Mycobacterial culture, fungal culture, cytology, cell count and differential. PATIENT CONDITION FOLLOWING PROCEDURE: Awake, alert, with stable oxygen saturation on 4 L by nasal cannula. FOLLOWUP PLAN: The patient will remain in hospital overnight and his primary service and consulting service will follow up on the results of bronchoscopy prior to or shortly after his discharge. Lawrence Trotter MD 07/29/17 1124 <Electronically signed by Lawrence Trotter MD> 07/29/17 2755 Assessment & Plan 72-year-old male with medical history significant for COPD, asthma, and hypertension presented with increased shortness of breath after a recent fall and after his rib X-ray from 07/21/17 showed mildly displaced right third and fifth rib fractures. # COPD/Asthma acute on chronic exacerbation, present on admission. Improving. - Bronchoscopy on 07/28 that ruled out an obstructing lesion and successfully cleared thick plugs in both lower lobes. - Continue home Advair, Albuterol, Mucinex - Maintain O2 sat 88-92% - Appreciate pulmonology consult. Will followup with recs - Continued pulmonary toilet with bronchodilators, Acapella, cough and deep breathing. Encourage mobility and time out of bed. - Stop Cefepime after 7 days or if No Growth on 07/29 cultures from BAL - Continue with PO Prednisone and wean slowly - Followup micro and cytology from bronchoscopy. # Probable community acquired vs post-obstructive Pneumonia, present on admission. - 07/[address]- bibasilar right greater than left aeration abnormalities in the lower lung boyd with loss of aeration within the bronchi. Repeat 07/25- CXR - Bibasilar opacities, R>L suggestive of bilateral pneumonia. - Antibiotics- started with Azithromycin on 07/22 and Cefepime 07/24. - Blood and Sputum Cultures- ngtd. Procalcitonin negative. - Serial CXR's don't show radiographic resolution. - Stop Abx after 7 days as noted above # Acute multiple rib fractures, present on admission. Due to ground level fall. - Mildly displaced right third and fifth rib fractures. Thoracic spine x-ray- no fracture seen. - Pain- Oxycodone 5mg q4h prn. - Lidoderm patch. - Tylenol IV 1 g 3 times a day when necessary # Elevated Troponin of uncertain significance, present on admission, resolved. - Likely demand ischemia. - ASA 81mg given - Atorvastatin 20mg. - Troponin peaked 0.[address]-T changes # History of hyperlipidemia - Continue Atorvastatin # Essential Hypertension presumed stable - Continue home lisinopril - Lopressor 2.5-5mg IV should SBP consistently >180mmgh # Chronic Depression, presumed stable - Continue home Fluoxetine # Hyperglycemia acute 07/23 - Likely due to Steroids. - HgA1C 5.8 - Continue low SSI Dispo: 1-2 days pending improved respiratory status and pulmonology clearance. VTE Prophylaxis: Sub-Q Heparin (Unfractionated) VTE Mechanical Devices: Intermittant Pneumatic CD Resuscitation Status: CPR: Attempt Resuscitation George Shah Jul 31, 2017 10:34 George Shah Jul 31, 2017 10:34
[2017-07-31] MEDS: Lidocaine Topical 5% Patch TOPICAL SCH (13:00)
--- NOTE | 2017-07-31 18:04 | PROG NOTE ---
[address] [address] PROGRESS NOTE PATIENT: IRASEMA SPARKS : 1945 MR#: [id number] ADMIT: 07/22/2017 JOB ID: [id number] DATE: 07/31/2017 PULMONARY FOLLOWUP NOTE: PROBLEM LIST: 1. Atelectasis secondary to mucus plugging secondary to multiple rib fractures. 2. Acute exacerbation of COPD. SUBJECTIVE: Breathing very comfortably today. Feels a bit tired. Feels he felt so well yesterday he somewhat overdid it. Chest a bit sore from overexertion. Otherwise, doing reasonably well. Able to take a good deep breath comfortably for the most part. Coughed up a very small amount of some whitish yellow phlegm with a red streak but this only happened on one occasion, today. Using incentive spirometer and achieving volumes of 2 L. Does not feel that the Acapella is particularly helpful in bringing up any phlegm. OBJECTIVE: Temperature 36.7, pulse 79-90, respiratory rate 16 to 18, blood pressure 133/80, O2 sat on room air is 93%-97%. General appearance: Comfortable appearing. Speaking easily. Moving around the bed relatively easily. Chest: Fairly good breath sounds. Lung boyd are clear. No use of accessory muscles. Heart: Regular rhythm. Heart tones normal. Abdomen: Soft. Bowel tones present. ASSESSMENT: 1. Atelectasis secondary to mucus plugging. Doing quite a bit better. Feeling fine. Breathing comfortably. Able to take deeper breaths. Minimal sputum. 2. Multiple rib fractures. Still having some problems with chest pain, however that is abating and he is doing relatively comfortable I believe as long as he gets his pain medications. PLAN: 1. Continue current regimen. 2. From a pulmonary standpoint the patient can be discharged. He is doing quite well. Awaiting formal bronchoscopy results, though I am not expecting any untoward problems. 3. Can be discharged in the morning from a pulmonary standpoint with followup blood cultures and cytology that can be delivered as an outpatient if they are not back tomorrow. 4. Will stop following the patient on a routine basis. If any questions arise, please feel free to contact the Pulmonary service.
--- NOTE | 2017-07-31 19:33 | NUR ---
Activity Pt still having rib/shoulder pain and using medications q4 hours. No SOB noted and pt able to ambulate to BR with SBA. Declined to walk in hallways or to shower today. Call light in reach, care continues.
[2017-07-31] MEDS: diphenhydrAMINE 25 mg Capsule PO PRN (22:53)
[2017-08-01] MEDS: Heparin 5,000 Unit/mL Inj SUBQ SCH ×3 (00:48→10:46)
--- NOTE | 2017-08-01 01:19 | NUR ---
IV access Pt's left forearm IV infiltrated. Another RN on floor discontinued IV access and applied heat pack to site. No pain to site, per pt. Explained to pt the need for a new IV site, pt is still receiving IV antibiotics. Pt accepting of new IV, requesting IV therapy to perform due to difficult stick and requesting to get access closer to when antibiotics are due. No new access at this time.
[2017-08-01 04:15] VITALS: BP 138/82; PULSE 66; O2SAT 94
[2017-08-01 05:51] LABS: Magnesium 2.3 mg/dL (1.6-2.6)
[2017-08-01] MEDS: Cefepime Inj 1,000 MG in Dextrose 5% Minibag Plus 50 ML IV SCH (06:03)
[2017-08-01 07:44] VITALS: PULSE 73; RESP 18; O2SAT 95
[2017-08-01] MEDS: Albuterol-Ipratropium 3 mL Inhalation Solution NEB SCH (07:44)
[2017-08-01] MEDS: Insulin LISPRO 300 Unit/3 mL Inj SUBQ SCH (08:00)
[2017-08-01] MEDS ORDERED: LISI30TA5 PO (08:16)
[2017-08-01] MEDS ORDERED: IPRA4AER IH (08:16)
[2017-08-01] MEDS ORDERED: PRE20 PO (08:16)
[2017-08-01] MEDS ORDERED: ATOR20TA65 PO (08:16)
[2017-08-01] MEDS ORDERED: ALBU8.5H2 INHALATION (08:16)
--- NOTE | 2017-08-01 08:21 | PCM.DIMED ---
Discharge Instructions Date of Service Aug 01, 2017 Dates of Hospitalization Jul 22, 2017 at 19:24 Discharge Diagnosis Discharge Diagnosis # COPD/Asthma acute on chronic exacerbation, present on admission. Improved. - Bronchoscopy on 07/28/17 that ruled out an obstructing lesion and successfully cleared thick plugs in both lower lobes. # Probable community acquired vs post-obstructive Pneumonia, present on admission. Resolved. # Acute mildly displaced right third and fifth rib fractures, due to ground level fall, present on admission. # Elevated Troponin of uncertain significance, present on admission, resolved. - Likely demand ischemia. # Hyperlipidemia # Essential Hypertension, stable # Chronic Depression, presumed stable Diet Discharge Diet: Low fat, Low Sodium, Heart Healthy Activity Discharge Activity: No restrictions Call your provider Call your provider for: Fever or Chills, Shortness of breath, Chest pain Patient Instructions Patient Instructions Seek immediate medical attention if any new or worsening signs or symptoms occur. Follow-up plan 1. Followup with primary care provider within one week. Follow-up Provider: Andrei Vidal MD, Masoud Aug 01, 2017 08:21
--- NOTE | 2017-08-01 08:25 | PCM.DC.MED ---
Discharge Summary Date of Service Aug 01, 2017 Dates of Hospitalization Date of Hospital Admission Jul 22, 2017 at 19:24 Date of Discharge: Aug 01, 2017 Providers: Admitting Physician: Norman Balbuena MD Primary Care Physician: Andrei Vidal MD Attending Physician: George Correa Diagnosis at Time of Discharge Diagnosis at Time of Discharge # COPD/Asthma acute on chronic exacerbation, present on admission. Improved. - Bronchoscopy on 07/28/17 that ruled out an obstructing lesion and successfully cleared thick plugs in both lower lobes. # Probable community acquired vs post-obstructive Pneumonia, present on admission. Resolved. # Acute mildly displaced right third and fifth rib fractures, due to ground level fall, present on admission. # Elevated Troponin of uncertain significance, present on admission, resolved. - Likely demand ischemia. # Hyperlipidemia # Essential Hypertension, stable # Chronic Depression, presumed stable Consultations 1. Pulmonology Procedures XRay, CTs & MRIs Date of Service: 07/23/17 1227 PROCEDURE: X-RAY THORACIC SPINE, 2 VIEWS IMPRESSION: 1. No fracture seen. If there is continued pain, followup exam or additional imaging such as MRI or CT could be performed for further assessment. 2. Multilevel disc degeneration and diffuse idiopathic skeletal hyperostosis. Dictated by: Prasanna Moya [facility] Interpreted: Beck Cedeño MD on 07/23/2017 at 13:21 Approved by: Beck Cedeño M.D. on 07/23/2017 at 14:41 Date of Service: 07/23/17 1237 PROCEDURE: CT CHEST WITHOUT CONTRAST ([id number]) IMPRESSION: There are bibasilar right greater than left aeration abnormalities in the lower lung boyd with loss of aeration within the bronchi. The appearance of bibasilar early and without definite mass or adenopathy are visualized metastatic disease in the chest suggest inflammatory cause of mucus plugging may be because of the change of the lung boyd since the x-rays in September of 2016. Bronchoscopy in this gentleman may be of benefit. Dictated by: Beck Cedeño M.D. on 07/23/2017 at 17:34 Approved by: Beck Cedeño M.D. on 07/23/2017 at 17:39 Date of Service: 07/28/17 0500 PROCEDURE: X-RAY CHEST, TWO VIEWS ([id number]) IMPRESSION: 1. Persistent medial bibasilar consolidation, atelectasis, or aspiration. Dictated by: Gunner Oh M.D. on 07/28/2017 at 11:48 Approved by: Gunner Oh M.D. on 07/28/2017 at 11:48 Cardiac Echo Impression Date of Service: 07/23/172027 Echocardiogram Report Interpretation Summary Left ventricular wall thickness is mildly increased. Left ventricular systolic function is normal without focal wall motion abnormalities. The ejection fraction is estimated to be 55-60%. LVEF has not changed since prior study. The right ventricle is normal in size, thickness and function. Pulmonary artery pressures cannot be estimated because of the lack of a measurable TR jet velocity. Both atria are normal in size. There is no significant valvular heart disease. The aortic Sinus(es) of Valsalva are borderline dilated. The ascending aorta is mildly enlarged. Reading Physician:PM Invasive Procedures DATE OF SERVICE: 07/29/2017 PROCEDURE: Flexible video bronchoscopy. POSTOPERATIVE DIAGNOSIS(ES): Pneumonia and lobar atelectasis. PREOPERATIVE DIAGNOSIS(ES): Pneumonia, lobar atelectasis secondary to mucus plugging. SURGEON: Lawrence Trotter MD. SPECIMENS: Bronchoalveolar lavage fluid for bacterial culture and sensitivity, Mycobacterial culture, fungal culture, cytology, cell count and differential. PATIENT CONDITION FOLLOWING PROCEDURE: Awake, alert, with stable oxygen saturation on 4 L by nasal cannula. FOLLOWUP PLAN: The patient will remain in hospital overnight and his primary service and consulting service will follow up on the results of bronchoscopy prior to or shortly after his discharge. Lawrence Trotter MD 07/29/17 1124 <Electronically signed by Lawrence Trotter MD> 07/29/17 6594 Brief History As noted in H&P by Dr. Alicea: Per patient, he states significant shortness of breath with increasing wheezing since this morning. He desats to the low 80s with exertion. He can walk around 8-10 feet before stopping for air. Patient states that he cannot cough due to significant chest pain. Patient in the emergency room yesterday status post ground-level fall while he was running away from [place], resulting in right ribs fracture. Patient reports that he can usually clear his mucus every morning with vigorous coughing. However with ribs fracture, he cannot fully excoriate. Patient try inhalers that failed to ameliorate symptoms, thus present himself to ED. On review of system, patient denies any lightheadedness or dizziness. He further denies any cardiac chest pain, no syncopal episode, no palpitation. Patient has chronic cough, no change in sputum color or quantity, no hemoptysis. Additionally patient denies any fevers, chills, or night sweats. She denies any hematemesis, no nausea vomiting or diarrhea. In the ED, patient vital remained stable, blood pressure slightly high 163 and 96 otherwise no temperatures, pulses 80s, respiratory rate 18, pulse oximetry 91 -94% on 1-2 L. Chest x-ray redemonstrate right rib fracture, otherwise focal pulmonary opacity in the right mediastinal lung, possible pneumonia, aspiration or atelectasis. CBC with white count 13.6 elevated, however neutrophils 75.4%. Pro-calcitonin 0.06 unremarkable. Lab CMP unremarkable, kidney function GFR estimated at 113. Troponin mildly elevated at 0.022, CK and CK-MB within normal range however. And EKG without any ST or T-wave changes. Given the patient's elevated white count in addition to mild elevation in troponin, patient admitted for further evaluation Hospital Course 72-year-old male with medical history significant for COPD, asthma, and hypertension presented with increased shortness of breath after a recent fall and after his rib X-ray from 07/21/17 showed mildly displaced right third and fifth rib fractures. # COPD/Asthma acute on chronic exacerbation, present on admission. Improving. - Bronchoscopy on 07/28 that ruled out an obstructing lesion and successfully cleared thick plugs in both lower lobes. - Continued home Advair, Albuterol, Mucinex - Maintained O2 sat 88-92% - Appreciate pulmonology consult. - Continued pulmonary toilet with bronchodilators, Acapella, cough and deep breathing. Encouraged mobility and time out of bed. - Post 7 days of treatment with Cefepime and Azithro - Continue with PO Prednisone and wean slowly - Followup micro and cytology from bronchoscopy as outpatient # Probable community acquired vs post-obstructive Pneumonia, present on admission. - 07/[address]- bibasilar right greater than left aeration abnormalities in the lower lung boyd with loss of aeration within the bronchi. Repeat 07/25- CXR - Bibasilar opacities, R>L suggestive of bilateral pneumonia. - Antibiotics with Azithromycin and Cefepime as noted above. - Blood and Sputum Cultures negative. Procalcitonin negative. # Acute multiple rib fractures, present on admission. Due to ground level fall. - Mildly displaced right third and fifth rib fractures. Thoracic spine x-ray- no fracture seen. # Elevated Troponin of uncertain significance, present on admission, resolved. - Troponin peaked 0.[address]-T changes - Echo as noted above # Hyperlipidemia - Started Atorvastatin # Essential Hypertension stable - Continue home lisinopril # Chronic Depression, presumed stable - Continued home Fluoxetine # Hyperglycemia acute 07/23 - Likely due to Steroids. - HgA1C 5.8 Exam Vital Signs (Last) Date Time Temp Pulse Resp B/P Pulse Ox O2 Delivery O2 Flow Rate FiO2 08/01/17 07:44 73 18 95 Room Air 08/01/17 04:15 36.7 138/82 07/29/17 10:14 2 Exam General: Alert, Cooperative, No Acute Distress Head: Normal Eyes: Scleral Anicteric Nose: Mucous Membr Moist/[place] Mouth: Mucous Membr Moist/[place] Neck: Supple Chest & Lungs: Chest Wall Normal, Clear to auscultation bilat Cardiovascular: Regular Rate/Rhythm Pulses: NL carotid, radial, femoral, DP, PT Abdomen: Non-tender, Normoactive bowel tones, Soft Extremities: No cyanosis/clubbing/edema bilat Neurological: Grossly Neurologically Intact, Normal Speech Test 07/22/17 17:19 07/22/17 21:26 07/23/17 00:00 07/23/17 05:00 Prothrombin Time 9.8sec (8.1-12.5) Prothromb Time International Ratio 0.92ratio Hemoglobin A1c 5.8 Total Creatine Kinase 199U/L (21-232) Creatine Kinase MB 5.4ng/mL (0.0-10.4) Creatine Kinase MB % % (0.0-5.0) Pro-B-Type Natriuretic Peptide 1989pg/mL (0-376) Urine Color Yellow (YELLOW) Urine Appearance Clear (CLEAR,HAZY) Urine pH 7.5 (5.0-8.0) Urine Specific [place] 1.020 (1.003-1.035) Urine Protein Tracemg/dL (NEG,TRACE) Urine Glucose (UA) Negativemg/dL (NEGATIVE) Urine Ketones Tracemg/dL (NEGATIVE) Urine Occult Blood Negative (NEGATIVE) Urine Nitrite Negative (NEGATIVE) Urine Bilirubin Negative (NEGATIVE) Urine Urobilinogen Normalmg/dL (NORMAL) Urine Leukocyte Esterase Negative (NEGATIVE) Urine RBC 0-2/hpf (0-2) Urine WBC 0-5/hpf (0-5) Urine Epithelial Cells Few/hpf (NONE-MOD) Urine Crystals None seen (NONE SEEN) Urine Bacteria Few/hpf (NONE-FEW) Urine Hyaline Casts None/lpf (NONE) Urine Granular Casts None seen (NONE SEEN) Urine Waxy Casts None seen (NONE SEEN) Urine Red Blood Cell Casts None seen (NONE SEEN) Urine White Blood Cell Casts None seen (NONE SEEN) Urine Mucus None seen (None Seen) Urine Trichomonas None seen (NONE SEEN) Urine Yeast None (NONE SEEN) Urinalysis Comment Amorphous sediment Urine Culture Reflexed Not indicated Urine Legionella pneumophilia Ag Negative (Negative) Troponin T 0.010ug/L (0.0-0.011) Triglycerides Level 153mg/dL (0-149) Cholesterol Level 250mg/dL (100-199) LDL Cholesterol, Calculated 140.400mg/dL (0-99) VLDL Cholesterol 30.600mg/dL HDL Cholesterol 79mg/dL (>39) Cholesterol/HDL Ratio 3.16 (0.0-4.4) Procalcitonin 0.07ng/mL (0.00-0.08) Test 07/26/17 07:29 07/27/17 05:30 07/28/17 05:20 07/29/17 08:48 Immunoglobulin E 68IU/mL (0-100) Hematology Comments Phosphorus Level 3.2mg/dL (2.5-4.9) Total Bilirubin 0.5mg/dL (0.0-1.2) Aspartate Amino Transf (AST/SGOT) 20U/L (0-50) Alanine Aminotransferase (ALT/SGPT) 33U/L (0-44) Alkaline Phosphatase 61U/L (25-160) Total Protein 5.6g/dL (6.4-8.4) Albumin 3.4g/dL (3.4-5.0) Metamyelocytes % 3% (0-0) White Blood Count 16.7th/mm3 (3.8-10.1) Red Blood Count 5.20mil/mm3 (4.40-5.80) Hemoglobin 16.6g/dL (13.8-17.2) Hematocrit 49.0% (41.0-50.0) Mean Corpuscular Volume 94.2fL (81-100) Mean Corpuscular Hemoglobin 31.9pg (27.0-35.0) Mean Corpuscular Hemoglobin Concent 33.9% (32.0-37.0) Red Cell Distribution Width 14.1% (12.3-15.4) Platelet Count 221bil/L (150-400) Neutrophils (%) (Auto) 79% (40-74) Lymphocytes (%) (Auto) 9% (14-46) Monocytes (%) (Auto) 3% (4-12) Eosinophils (%) (Auto) 0% (0-5) Basophils (%) (Auto) 0% (0-3) Band Neutrophils % 5% (1-5) Myelocytes % 4% (0-0) Test 07/29/17 10:00 08/01/17 04:55 Body Fluid Source Bronchial washing Body Fluid Color (Clear) Body Fluid Appearance Cloudy Body Fluid WBC 1200/mm3 Body Fluid RBC 1500/mm3 Body Fluid Polynuclear WBCs 50% Body Fluid Lymphocytes 0% Body Fluid Monocytes 50% Body Fluid Eosinophils 0% Body Fluid Basophils 0% Sodium Level 136mEq/L (134-144) Potassium Level 4.8mEq/L (3.5-5.2) Chloride Level 99mEq/L (97-108) Carbon Dioxide Level 22mmol/L (18-29) Blood Urea Nitrogen 31mg/dL (8-27) Creatinine 0.80mg/dL (0.76-1.27) Estimat Glomerular Filtration Rate 102mL/min (>59) Glucose Level 152mg/dL (60-99) Calcium Level 9.0mg/dL (8.5-10.1) Magnesium Level 2.3mg/dL (1.6-2.6) Discharge Medications Discharge Medications Albuterol/Ipratropium (Combivent Respimat Inhal [place]) 120 Spr/4 Gm Inhaler 1 PUFF IH QID Prescribed by: GEORGE CORREA MD Atorvastatin Calcium (Atorvastatin Calcium) 20 Mg Tablet 20 MG PO HS Prescribed by: GEORGE CORREA MD Lisinopril (Lisinopril) 30 Mg Tablet 30 MG PO HS Prescribed by: GEORGE CORREA MD Mometasone Furoate (Nasonex) 17 Gm [place].pump 1 SPRAY NASAL HS (Reported) Prednisone (PredniSONE) 20 Mg Tablet 10 MG PO BID (Reported) Prednisone (PredniSONE) 20 Mg Tablet 20-120 MG PO DAILY TAKE 3 TABS (60 MG) TWICE DAILY X 2 DAYS THEN, TAKE 2 TABS (40 MG) TWICE DAILY X 2 DAYS THEN, TAKE 1 TAB (20 MG) TWICE DAILY X 2 DAYS THEN, TAKE 1 TAB (20 MG) ONCE DAILY AND FOLLOWUP WITH YOUR PRIMARY CARE PROVIDER FOR FURTHEER INSTRUCTIONS REGARDING TAPERING OR CONTINUING Prescribed by: GEORGE CORREA MD As needed Albuterol HFA (Proair HFA) 8.5 Gm Hfa.aer.ad 2 PUFFS INHALATION Q4H PRN PRN For Wheezing Prescribed by: GEORGE CORREA MD Fluoxetine (Fluoxetine) 20 Mg Capsule 20 MG PO HS PRN PRN AD (Reported) Fluticasone/Salmeterol (Advair 250-50 Diskus) 60 Puff/Inh Disk 1 DISKUS INHALATION BID PRN PRN For Shortness of Breath (Reported) Oxycodone (Roxicodone) 5 Mg Tablet 2.5-5 MG PO QID PRN PRN For Pain Prescribed by: ANDREW TOLENTINO DO Tizanidine (Tizanidine) 4 Mg Tablet 4 MG PO PRN For Spasm (Reported) oxyCODONE (oxyCODONE) 5 Mg Tablet 1 MG PO PRN For Pain (Reported) Miscellaneous Medications Cephalexin (Cephalexin) 500 Mg Capsule 500 MG PO (Reported) Testosterone Cypionate (Testosterone Cypionate) 200 Mg/1 Ml Vial 1 CC INJ ( Reported) Followup Plan Disposition: Home Follow-up plan 1. Followup with primary care provider within one week. Discharge Diet: Low fat, Low Sodium, Heart Healthy Discharge Activity: No restrictions Patient Instructions Seek immediate medical attention if any new or worsening signs or symptoms occur. Follow-up Provider: Andrei Vidal MD Time spent 35 min copies to: Andrei Vidal MD, Masoud Aug 01, 2017 08:25
[2017-08-01] MEDS: Fluticasone-Salmererol 250-50 Inhaler INHALATION SCH (08:30)
[2017-08-01] MEDS: guaiFENesin 600 mg ER12 Tablet PO SCH (10:45)
[2017-08-01] MEDS: predniSONE 20 mg Tablet PO SCH (10:45)
--- NOTE | 2017-08-01 10:49 | NUR ---
Social Work- Discharge/Multidisciplinary Rounds Data: EMR reviewed. Pt is on day 10 of hospitalization for COPD Exac. Pt discussed in multidisciplinary rounds, pt to discharge today. MD asked SW to discuss transportation for patient. SW met with pt at bedside to discuss transportation. Pt is not enrolled in [employer] [facility]. Discussed options of 1) private pay taxi 2) friend/family to transport or 3) bus system. Pt declined paying for a taxi. Pt states that his friends work and that they are not available to transport him home. Pt also declined a bus voucher and stated that he can't walk that far to the bus. Pt stated "I will walk home, I don't need anything else." SW encouraged pt to call if he needed assistance with anything else. Phone number on whiteboard. Pt is not being d/c on any nebulizers or home O2. Pt to d/c home with no additional SW needs. Assessment: Pt who is independent with ADLs and self-care Plan: Pt to d/c home either walking or via POV. SW encouraged pt to call if he needed assistance with anything else. Pt to d/c home with no additional SW needs. Sheridan Rosenbaum CLERICAL DENTIST ASSISTANT
--- NOTE | 2017-08-01 10:53 | PATH ---
SURGICAL PATHOLOGY Attending Physician:See Additional MD CASE STATUS: Signed Out PATIENT NAME: IRASEMA SPARKS PID: [id number] : 1945 DATE COLLECTED:07/29/2017 00:00 SPECIMEN: Bronchial Washing CLINICAL HISTORY: Bronchial Washing ICD-10 code not given FINAL DIAGNOSIS: Bronchial Washings for Cytology (ThinPrep and Cell Block): Negative for malignant cells. Columnar epithelial cells and histiocytes are present. ICD10: R91.8 GROSS DESCRIPTION: Received fresh on 07/30/2017 is approximately 5 cc of cloudy pink fluid. Prepared are one cell block and one ThinPrep slide. Vo ICD-9 CODES: CPT CODES: 1: 39404, 48147 Electronically Signed Out Benji Palacio MD, PhD [facility] Pathology [facility] [address] [facility], [place] [address] Technical component performed at [facility], [facility] [address], [place], [address]
--- NOTE | 2017-08-01 11:54 | NUR ---
Discharge Pt discharged at 1147 in w/c to private taxi he is paying for. Pt denies SOB at rest, but does have with exertion. Declined any pain meds today, stating he doesn't like how they make him feel. Pt has discharge instructions, care notes and new rx's. Has all belongings and all questions answered. NHAN WALTERS, A&O x 3. IV removed intact.
== END 2017-08-01 11:50 | disposition home or self-care (01) | DRG 163 ==
LOC: EDBD 16:49 → SED 16:49 → OSC 19:24
PROVIDERS: ADMIT Hospitalist; ATTEND Hospitalist
PROC: 4A033R1 Measurement of Arterial Saturation, Peripheral, Percutaneous Approach (ICD-10-PCS; 2017-07-23)
PROC: 0B968ZX Drainage of Right Lower Lobe Bronchus, Via Natural or Artificial Opening Endoscopic, Diagnostic (ICD-10-PCS; principal; 2017-07-29 09:00)
PROC: 0B9B8ZZ Drainage of Left Lower Lobe Bronchus, Via Natural or Artificial Opening Endoscopic (ICD-10-PCS; 2017-07-29 09:00)
DX: J44.1 Chronic obstructive pulmonary disease with (acute) exacerbation (principal); J18.9 Pneumonia, unspecified organism; S22.41XA Multiple fractures of ribs, right side, initial encounter for closed fracture; T17.590A Other foreign object in bronchus causing asphyxiation, initial encounter; J98.11 Atelectasis; I24.8 Other forms of acute ischemic heart disease; J44.0 Chronic obstructive pulmonary disease with (acute) lower respiratory infection; I10 Essential (primary) hypertension; Z79.52 Long term (current) use of systemic steroids; F32.9 Major depressive disorder, single episode, unspecified; R73.9 Hyperglycemia, unspecified; F12.90 Cannabis use, unspecified, uncomplicated; E78.5 Hyperlipidemia, unspecified; J45.909 Unspecified asthma, uncomplicated